=== PATIENT | male | born 1945 | race African-American/Black ===

== ENCOUNTER 2017-11-23 11:15 | Emergency (ER) | payer SELFPAY ==
[~2017-11-23] VITALS: Ht 172.7 cm; Wt 77.1 kg
[~2017-11-23 11:15] MED LIST: UNOBMED
[2017-11-23 11:19] VITALS: BP 124/90
[2017-11-23 12:15] VITALS: BP 124/90
--- NOTE | 2017-11-24 07:39 | Emergency Room Report ---
History of Present Illness General Chief Complaint: Alcohol Intoxication Source: Patient, EMS Present Illness HPI 72-year-old male presents ED for evaluation. Brought in by EMS. Sitting on the sidewalk. Initially did not want to move the sidewalk so 911 was called. Patient in no distress upon arrival. Denies any complaints. States he feels fine. States he wants a sandwich. Admits to some alcohol use. Denies any drug use. Denies chest pain or shortness of breath. Denies abdominal pain. No other aggravating relieving factors. Denies any other associated symptoms Allergies: Coded Allergies: No Known Allergies (Unverified , 11/23/17) Patient History Past Medical History: none Past Surgical History: none Pertinent Family History: none Social History: Reports: alcohol use; Denies: smoking, drug use Immunizations: UTD Reviewed Nursing Documentation: PMH: Agreed; PSxH: Agreed Nursing Documentation-PMH Past Medical History: No Stated History Review of Systems All Other Systems: negative except mentioned in HPI Physical Exam Vital Signs Date Time Temp Pulse Resp B/P (MAP) Pulse Ox O2 Delivery O2 Flow Rate FiO2 11/23/17 11:09 98.6 90 16 120/90 98 Room Air 98.6 Sp02 EP Interpretation: reviewed, normal General Appearance: no apparent distress, alert, GCS 15, non-toxic Head: normocephalic, atraumatic Eyes: bilateral eye normal inspection, bilateral eye PERRL ENT: hearing grossly normal, normal pharynx, no angioedema, normal voice Neck: full range of motion, supple/symm/no masses Respiratory: chest non-tender, lungs clear, normal breath sounds, speaking full sentences Cardiovascular #1: regular rate, rhythm, no edema Cardiovascular #2: 2+ carotid (R), 2+ carotid (L), 2+ radial (R), 2+ radial (L) , 2+ dorsalis pedis (R), 2+ dorsalis pedis (L) Gastrointestinal: normal bowel sounds, non tender, soft, non-distended, no guarding, no rebound Rectal: deferred Genitourinary: normal inspection, no CVA tenderness Musculoskeletal: back normal, gait/station normal, normal range of motion, non- tender Neurologic: alert, oriented x3, responsive, motor strength/tone normal, sensory intact, speech normal Psychiatric: judgement/insight normal, memory normal, mood/affect normal, no suicidal/homicidal ideation Reflexes: 3+ bicep (R), 3+ bicep (L), 3+ tricep (R), 3+ tricep (L), 3+ knee (R) , 3+ knee (L) Skin: normal color, no rash, warm/dry, well hydrated Lymphatic: no adenopathy Medical Decision Making Diagnostic Impression: Primary Impression: Acute alcoholic intoxication Qualified Codes: F10.929 - Alcohol use, unspecified with intoxication, unspecified ER Course Hospital Course 72-year-old male presents to ED status post EtOH intoxication. no complaints on arrival Clinical course Patient placed on stretcher. Given that patient is able to provide an adequate history, I see no need to check blood work or place an IV. my assessment shows no evidence of SI/HI requiring psychiatric evaluation. Patient requests sandwich. States he would like to be discharged. Walking with steady gait. Diagnosis - ETOH intoxication stable and discharged to home. Followup with PMD. Return to ED if symptoms recur or worsen Last Vital Signs Date Time Temp Pulse Resp B/P (MAP) Pulse Ox O2 Delivery O2 Flow Rate FiO2 11/23/17 12:15 98.6 78 15 124/90 98 Room Air 98.6 Status: improved Disposition: HOME, SELF-CARE Condition: Stable Referrals: NOT CHOSEN IPA/,REFERRING (PCP) Patient Instructions: Alcohol Use Disorder Nomi Bach MD Nov 24, 2017 07:39
== END 2017-11-23 12:15 | disposition home or self-care (01) ==
LOC: EDBD 11:15 → EMR 12:05
DX: F10.929 Alcohol use, unspecified with intoxication, unspecified (principal)
CPT/HCPCS: 99284

== ENCOUNTER 2018-05-21 16:47 | Inpatient (IN) | payer SELFPAY ==
[~2018-05-21] VITALS: Ht 170.2 cm; Wt 71.3 kg
[~2018-05-21 16:47] MED LIST changes: +NKM
[2018-05-21 17:00] VITALS: BP 125/84
--- NOTE | 2018-05-21 17:00 | NUR ---
ED Nurse Note: Pt arrived by ambulance from a friend's home; pt is homeless. Ambulance personnel stated the friend claimed that pt fell and acquired the open laceration on left alexander. Ambulance also mentioned that friend says pt is demented and unable to walk due to this recent fall and injury. Pt confused with repetitive speech and frustration due to difficulty comminicationg. Pt anxious and restless. Will continue to monitor and carry out MD's orders.
[2018-05-21] MEDS ORDERED: LORazepam Inj 2mg/ml 1ml IM ONE (17:15)
--- NOTE | 2018-05-21 17:30 | NUR ---
ED Nurse Note: RN confirmed with Dr. Bach to change route of ativan 1mg. ativan given by IVP per dr. Bach.
[2018-05-21 17:33] LABS: HEMATOCRIT 25.3 % (42.0-52.0); MEAN CORPUSCULAR VOLUME 80 FL (80-99); PLATELET COUNT 97 K/UL (150-450); RED BLOOD COUNT 3.14 M/UL (4.70-6.10); RED CELL DISTRIBUTION WIDTH 16.7 % (11.6-14.8); WHITE BLOOD COUNT 11.1 K/UL (4.8-10.8)
[2018-05-21 17:36] LABS: EOSINOPHILS % (AUTO) 0.1 % (0.0-3.0); LYMPHOCYTES % (AUTO) 16.5 % (20.0-45.0); MONOCYTES % (AUTO) 7.2 % (1.0-10.0); NEUTROPHILS % (AUTO) 75.1 % (45.0-75.0)
[2018-05-21 17:46] LABS: INR 1.1 (0.9-1.1)
[2018-05-21 17:56] LABS: ANION GAP 12 mmol/L (5-15); BLOOD UREA NITROGEN 10 mg/dL (7-18); CALCIUM 8.7 MG/DL (8.5-10.1); CARBON DIOXIDE 26 MMOL/L (21-32); CHLORIDE 101 MMOL/L (98-107); CREATININE 0.8 MG/DL (0.55-1.30); POTASSIUM 3.7 MMOL/L (3.5-5.1); SODIUM 138 MMOL/L (136-145)
[2018-05-21 17:57] LABS: AMMONIA < 10 umol/L (11-32)
[2018-05-21 18:06] LABS: ALANINE AMINOTRANSFERASE 32 U/L (12-78); ALBUMIN 3.4 G/DL (3.4-5.0); ALBUMIN/GLOBULIN RATIO 1.1 (1.0-2.7); ALKALINE PHOSPHATASE 84 U/L (46-116); ASPARTATE AMINO TRANSFERASE 31 U/L (15-37); BILIRUBIN,TOTAL 1.2 MG/DL (0.2-1.0)
[2018-05-21 18:07] LABS: BILIRUBIN,DIRECT 0.3 MG/DL (0.0-0.3)
[2018-05-21 19:00] VITALS: BP 113/86
--- NOTE | 2018-05-21 19:10 | NUR ---
ED Nurse Note: Received report from Key/ Lorena/ RN . Pt is A/O X3, Confused, waitng for bed to transfer.
--- NOTE | 2018-05-21 19:13 | Emergency Room Report ---
History of Present Illness General Chief Complaint: Multiple Trauma/Fall Source: Patient, EMS Present Illness HPI 72-year-old male presents ED for evaluation. Patient brought in by EMS. Patient stated that patient kicked something by accident at his friend's house and there was lots of bleeding from his left leg. Friend states there was "blood everywhere". No active bleeding as per EMS. Patient is a poor historian. Unable to provide any additional history at this time. Appears confused. History of EtOH. No signs of distress upon arrival. No other aggravating relieving factors. No other associated symptoms Allergies: Coded Allergies: No Known Allergies (Unverified , 11/23/17) Patient History Past Medical History: none Past Surgical History: none Pertinent Family History: none Social History: Reports: alcohol use; Denies: smoking, drug use Immunizations: UTD Reviewed Nursing Documentation: PMH: Agreed; PSxH: Agreed Nursing Documentation-PMH Past Medical History: No Stated History Review of Systems All Other Systems: limited Physical Exam Vital Signs Date Time Temp Pulse Resp B/P (MAP) Pulse Ox O2 Delivery O2 Flow Rate FiO2 05/21/18 16:39 77 18 140/52 97 Room Air Sp02 EP Interpretation: reviewed, normal General Appearance: no apparent distress, GCS 15, non-toxic, other - confused Head: normocephalic Eyes: bilateral eye normal inspection, bilateral eye PERRL ENT: normal ENT inspection Neck: normal inspection Respiratory: chest non-tender, lungs clear, normal breath sounds, speaking full sentences Cardiovascular #1: regular rate, rhythm, no edema Gastrointestinal: normal bowel sounds, non tender, soft, non-distended, no guarding, no rebound Rectal: deferred Genitourinary: no CVA tenderness Musculoskeletal: normal inspection, swelling - erythema to bilateral lower extremities. punctate bleeding from LLE. Neurologic: other - confused. awake Psychiatric: other - confused Skin: normal inspection Lymphatic: normal inspection Medical Decision Making Diagnostic Impression: Primary Impression: Encephalopathy acute Additional Impression: Anemia Qualified Codes: D64.9 - Anemia, unspecified ER Course Hospital Course 72 yo M presents with bleeding from LLE. also appears confused Differential diagnoses include: Post ictal, Dilantin toxicity, alcohol toxicity , intracranial injury Clinical course She placed on stretcher. On color television console monitor. After initial history and physical ordered labs, IV fluids, CT brain. Labs reviewed-electrolytes okay, leukocytosis, hemoglobin/hematocrit 8/25.3, ammonia level ok, Utox negative CT brain shows no acute pathology, venticulomegaly There is some soft tissue swelling on tib-fib x-ray. No fracture. Bleeding controlled here. Pressure dressing applied. Not a laceration no repair required Type and screen ordered. Blood pressure okay. Serial CBC recommended case discussed with Dr. Sandra and he agreed to accept the patient to his service for further care and support i. I feel this is a highly complex case requiring extensive working including EKG/Rhythm strip, Xray/CT/US, Blood/urine lab work, repeat exams while in ED, and administration of strong opiates/narcotics for pain control, admission to hospital or close patient follow up. Diagnosis - acute encephalopathy, anemia Admitted to floor in serious condition Labs Test 05/21/18 17:21 05/21/18 18:30 White Blood Count 11.1 K/UL (4.8-10.8) Red Blood Count 3.14 M/UL (4.70-6.10) Hemoglobin 8.0 G/DL (14.2-18.0) Hematocrit 25.3 % (42.0-52.0) Mean Corpuscular Volume 80 FL (80-99) Mean Corpuscular Hemoglobin 25.5 PG (27.0-31.0) Mean Corpuscular Hemoglobin Concent 31.7 G/DL (32.0-36.0) Red Cell Distribution Width 16.7 % (11.6-14.8) Platelet Count 97 K/UL (150-450) Mean Platelet Volume 10.7 FL (6.5-10.1) Neutrophils (%) (Auto) 75.1 % (45.0-75.0) Lymphocytes (%) (Auto) 16.5 % (20.0-45.0) Monocytes (%) (Auto) 7.2 % (1.0-10.0) Eosinophils (%) (Auto) 0.1 % (0.0-3.0) Basophils (%) (Auto) 1.0 % (0.0-2.0) Prothrombin Time 11.4 SEC (9.30-11.50) Prothromb Time International Ratio 1.1 (0.9-1.1) Activated Partial Thromboplast Time 26 SEC (23-33) Sodium Level 138 MMOL/L (136-145) Potassium Level 3.7 MMOL/L (3.5-5.1) Chloride Level 101 MMOL/L (98-107) Carbon Dioxide Level 26 MMOL/L (21-32) Anion Gap 12 mmol/L (5-15) Blood Urea Nitrogen 10 mg/dL (7-18) Creatinine 0.8 MG/DL (0.55-1.30) Estimat Glomerular Filtration Rate mL/min (>60) Glucose Level 131 MG/DL (74-106) Calcium Level 8.7 MG/DL (8.5-10.1) Total Bilirubin 1.2 MG/DL (0.2-1.0) Direct Bilirubin 0.3 MG/DL (0.0-0.3) Aspartate Amino Transf (AST/SGOT) 31 U/L (15-37) Alanine Aminotransferase (ALT/SGPT) 32 U/L (12-78) Alkaline Phosphatase 84 U/L (46-116) Ammonia < 10 umol/L (11-32) Total Protein 6.6 G/DL (6.4-8.2) Albumin 3.4 G/DL (3.4-5.0) Globulin 3.2 g/dL Albumin/Globulin Ratio 1.1 (1.0-2.7) Salicylates Level < 0.2 ug/mL (2.8-20) Acetaminophen Level < 2 MCG/ML (10-30) Serum Alcohol < 3 mg/dL Urine Opiates Screen Negative (NEGATIVE) Urine Barbiturates Screen Negative (NEGATIVE) Phencyclidine (PCP) Screen Negative (NEGATIVE) Urine Amphetamines Screen Negative (NEGATIVE) Urine Benzodiazepines Screen Negative (NEGATIVE) Urine Cocaine Screen Negative (NEGATIVE) Urine Marijuana (THC) Screen Negative (NEGATIVE) Other X-Ray Diagnostic Results Other X-Ray Diagnostic Results : X-Ray ordered: L tibfib # of Views/Limited Vs Complete: 2 View Indication: Pain EP Interpretation: Yes Interpretation: no dislocation, no fractures Impression: No acute disease Electronically Signed by: Electronically signed by Nomi Bach MD CT/MRI/US Diagnostic Results CT/MRI/US Diagnostic Results : Imaging Test Ordered: CT Head Impression ventriculomegaly. no acute process Last Vital Signs Date Time Temp Pulse Resp B/P (MAP) Pulse Ox O2 Delivery O2 Flow Rate FiO2 05/21/18 16:39 77 18 140/52 97 Room Air Status: improved Disposition: ADMITTED INPATIENT Condition: Serious Referrals: NOT CHOSEN IPA/,REFERRING (PCP) Nomi Bach MD May 21, 2018 19:13
--- NOTE | 2018-05-21 21:00 | NUR ---
ED Nurse Note: Pt's family called, ED Alberto / [phone].
--- NOTE | 2018-05-21 21:20 | NUR ---
TRANSFER TO FLOOR: Patient transferred to [facility] as ordered . Report given to Maylin/MIKE. Belongings rechecked with RN.
[2018-05-21] MEDS ORDERED: LORazepam Inj 2mg/ml 1ml IV PRN (22:15)
[2018-05-21] MEDS ORDERED: Morphine Sulfate 4mg/ml Inj (IV/IM USE ONLY) IVP PRN (22:15)
--- NOTE | 2018-05-21 22:41 | Infectious Diseases Prog Note ---
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 (3) Acute alcoholic intoxication Assessment & Plan: continue supportive care , watch for DT (4) Encephalopathy acute Assessment & Plan: metabolic related, continue hydration Subjective Allergies: Coded Allergies: No Known Allergies (Unverified , 11/23/17) Objective Vital Signs Last 24 Hour Vital Signs Date Time Temp Pulse Resp B/P (MAP) Pulse Ox O2 Delivery O2 Flow Rate FiO2 05/21/18 19:00 97.6 87 18 113/86 99 Room Air 05/21/18 17:00 97.6 98 19 125/84 99 Room Air 05/21/18 17:00 98 19 Room Air 05/21/18 16:39 77 18 140/52 97 Room Air Height (Feet): 5 Height (Inches): 7.00 Weight (Pounds): 155 Laboratory Tests Test 05/21/18 17:21 05/21/18 18:30 White Blood Count 11.1 K/UL (4.8-10.8) H Red Blood Count 3.14 M/UL (4.70-6.10) L Hemoglobin 8.0 G/DL (14.2-18.0) L Hematocrit 25.3 % (42.0-52.0) L Mean Corpuscular Volume 80 FL (80-99) Mean Corpuscular Hemoglobin 25.5 PG (27.0-31.0) L Mean Corpuscular Hemoglobin Concent 31.7 G/DL (32.0-36.0) L Red Cell Distribution Width 16.7 % (11.6-14.8) H Platelet Count 97 K/UL (150-450) L Mean Platelet Volume 10.7 FL (6.5-10.1) H Neutrophils (%) (Auto) 75.1 % (45.0-75.0) H Lymphocytes (%) (Auto) 16.5 % (20.0-45.0) L Monocytes (%) (Auto) 7.2 % (1.0-10.0) Eosinophils (%) (Auto) 0.1 % (0.0-3.0) Basophils (%) (Auto) 1.0 % (0.0-2.0) Prothrombin Time 11.4 SEC (9.30-11.50) Prothromb Time International Ratio 1.1 (0.9-1.1) Activated Partial Thromboplast Time 26 SEC (23-33) Sodium Level 138 MMOL/L (136-145) Potassium Level 3.7 MMOL/L (3.5-5.1) Chloride Level 101 MMOL/L (98-107) Carbon Dioxide Level 26 MMOL/L (21-32) Anion Gap 12 mmol/L (5-15) Blood Urea Nitrogen 10 mg/dL (7-18) Creatinine 0.8 MG/DL (0.55-1.30) Estimat Glomerular Filtration Rate mL/min (>60) Glucose Level 131 MG/DL (74-106) H Calcium Level 8.7 MG/DL (8.5-10.1) Total Bilirubin 1.2 MG/DL (0.2-1.0) H Direct Bilirubin 0.3 MG/DL (0.0-0.3) Aspartate Amino Transf (AST/SGOT) 31 U/L (15-37) Alanine Aminotransferase (ALT/SGPT) 32 U/L (12-78) Alkaline Phosphatase 84 U/L (46-116) Ammonia < 10 umol/L (11-32) L Total Protein 6.6 G/DL (6.4-8.2) Albumin 3.4 G/DL (3.4-5.0) Globulin 3.2 g/dL Albumin/Globulin Ratio 1.1 (1.0-2.7) Salicylates Level < 0.2 ug/mL (2.8-20) L Acetaminophen Level < 2 MCG/ML (10-30) L Serum Alcohol < 3 mg/dL Urine Opiates Screen Negative (NEGATIVE) Urine Barbiturates Screen Negative (NEGATIVE) Phencyclidine (PCP) Screen Negative (NEGATIVE) Urine Amphetamines Screen Negative (NEGATIVE) Urine Benzodiazepines Screen Negative (NEGATIVE) Urine Cocaine Screen Negative (NEGATIVE) Urine Marijuana (THC) Screen Negative (NEGATIVE) Current Medications Medications (Trade) Dose Ordered Sig/Jenna Route PRN Reason Start Time Stop Time Status Last Admin Dose Admin Acetaminophen (Tylenol) 650 mg Q4H PRN ORAL Mild Pain/Temp > 100.5 05/21/18 22:15 06/20/18 22:14 UNV Clindamycin HCl/ Dextrose 50 ml @ 100 mls/hr Q8HR IVPB 05/22/18 06:00 05/29/18 05:59 UNV Lorazepam (Ativan 2mg/ml 1ml) 1 mg Q6HR PRN IV For Anxiety 05/21/18 22:15 05/28/18 22:14 UNV Morphine Sulfate (Morphine Sulfate) 2 mg Q4H PRN IVP Severe Pain (Pain Scale 7-10) 05/21/18 22:15 05/28/18 22:14 UNV Pantoprazole (Protonix) 40 mg DAILY ORAL 05/22/18 09:00 06/21/18 08:59 UNV Bret Lassiter M.D. May 21, 2018 22:41
[2018-05-22] VITALS: BP 103/51
--- NOTE | 2018-05-22 00:12 | NUR ---
NURSE NOTES: Admitted a 72 year old male, oriented to his name, forgetful, confused and no complaints of pain at this time. Swabs done per Kirsten FRUIT TRIMMER. With g.20 on right AC. Scabs on the right arm. Active bleeding on the left lower extremity upon change of dressing. Photo taken and uploaded. Swab done on affected area. Dressing changed. Spoke to Dr. Sandra and admission orders obtained and carried out. Instructed the use of call light. Call light and needs in reach. Bed in lowest position, lock engaged and alarm on. Will continue to monitor pt. Spoke to Ed Alberto contact # [phone], he said, pt is his room mate and been helping him for years and he wants to be contacted once the patient is ready for discharge so he can pick him up. He gave me pt's [id number] # Patrizia [phone]. She said, she is in [place] with the pt's son Art Bejarano. Spoke to pt's son and obtained consent for blood transfusion witnessed by Charge nurse, Rell Babcock.
[2018-05-22] MEDS ORDERED: LORazepam Inj 2mg/ml 1ml IV PRN ×2 (00:15→11:30)
--- NOTE | 2018-05-22 00:15 | NUR ---
NURSE NOTES: Patient has been agitated and looking for his stuff repetitive times. Staff has been re orientating pt several times. Patient attempted to get out of bed few times.
[2018-05-22 04:00] VITALS: BP 110/59
--- NOTE | 2018-05-22 07:31 | NUR ---
HAND-OFF: Report given to MIKE Kovacs.
--- NOTE | 2018-05-22 07:35 | NUR ---
NURSE NOTES: Received patient in bed,asleep, breathing is even and unlabored. Infusing blood @ this time. Bed is in lowest position and locked.Bed alarm is on and side rails up. Call light and personnel items within reach. Left lower ex's with dressing and IV intact. Will continue plan of care.
[2018-05-22 08:00] VITALS: BP 141/63
--- NOTE | 2018-05-22 09:50 | NUR ---
NURSE NOTES: Patient completed blood transfusion without s/s of adverse reaction. V/S T-97.7, P-72, R-18, BP- 111/58. RN returned the empty PRBC bag and papaer to K. Original paper in the chart.
--- NOTE | 2018-05-22 11:16 | NUR ---
CASE MANAGEMENT:REVIEW FROM FRIEND'S HOUSE.... CC; GROUND LEVEL FALL AT FRIENDS HOUSE. LLE LACERATION. ALTERED SI: ACUTE ENCEPHALOPATHY. ANEMIA 97.6 77 18 140/52 97% ON RA H/H-8.0/25.5 IS: ATIVAN IM 1L NS BOLUS IV CLINDAMYCIN CT HEAD CXR TYPR & SCREEN : TO MED/SURG UNIT 4 EAST IS: TRANSFUSE 2 UNITS PRBC'S INTERQUAL CRITERIA MET
--- NOTE | 2018-05-22 11:18 | History & Physical ---
History and Physical History & Physicial seen and examined. Full Dictation is completed Dorina Sandra MD May 22, 2018 11:18
[2018-05-22] MEDS ORDERED: chlordiazePOXIDE 25mg Cap ORAL PRN (11:30)
[2018-05-22 12:00] VITALS: BP 117/56
[2018-05-22 13:21] LABS: HEMATOCRIT 27.7 % (42.0-52.0); HEMOGLOBIN 9.2 G/DL (14.2-18.0); MEAN CORPUSCULAR VOLUME 81 FL (80-99); PLATELET COUNT 79 K/UL (150-450); RED BLOOD COUNT 3.41 M/UL (4.70-6.10); RED CELL DISTRIBUTION WIDTH 15.9 % (11.6-14.8); WHITE BLOOD COUNT 7.4 K/UL (4.8-10.8)
[2018-05-22 14:02] LABS: ALANINE AMINOTRANSFERASE 30 U/L (12-78); ALBUMIN 3.2 G/DL (3.4-5.0); ALKALINE PHOSPHATASE 80 U/L (46-116); ANION GAP 9 mmol/L (5-15); ASPARTATE AMINO TRANSFERASE 37 U/L (15-37); BLOOD UREA NITROGEN 11 mg/dL (7-18); CALCIUM 8.6 MG/DL (8.5-10.1); CARBON DIOXIDE 27 MMOL/L (21-32); CHLORIDE 107 MMOL/L (98-107); CHOLESTEROL 128 MG/DL (< 200); CREATININE 0.8 MG/DL (0.55-1.30); HDL CHOLESTEROL 37 MG/DL (40-60); POTASSIUM 3.7 MMOL/L (3.5-5.1); SODIUM 143 MMOL/L (136-145); TRIGLYCERIDES 100 MG/DL (30-150)
--- NOTE | 2018-05-22 14:55 | Infectious Diseases Prog Note ---
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 with executive producer (3) Acute alcoholic intoxication Assessment & Plan: continue supportive care , watch for DT (4) Encephalopathy acute Assessment & Plan: metabolic related, continue hydration Subjective Constitutional: Reports: no symptoms HEENT: Reports: no symptoms Respiratory: Reports: no symptoms Breasts: Reports: no symptoms Cardiovascular: Reports: no symptoms Gastrointestinal/Abdominal: Reports: no symptoms Genitourinary: Reports: no symptoms Neurologic: Reports: confusion Psychiatric: Reports: anxiety Skin: Reports: no symptoms Endocrine: Reports: no symptoms Hematologic: Reports: no symptoms Musculoskeletal: Reports: pain Allergies: Coded Allergies: No Known Allergies (Unverified , 11/23/17) Objective Vital Signs Last 24 Hour Vital Signs Date Time Temp Pulse Resp B/P (MAP) Pulse Ox O2 Delivery O2 Flow Rate FiO2 05/22/18 12:00 98.2 68 20 117/56 (76) 97 05/22/18 09:00 Room Air 05/22/18 08:00 98.3 66 20 141/63 (89) 98 05/22/18 04:00 98.5 59 19 110/59 (76) 98 05/22/18 02:19 Room Air 05/22/18 00:00 98.0 57 19 103/51 (68) 95 05/21/18 21:20 97.6 91 18 121/78 99 Room Air 05/21/18 19:00 97.6 87 18 113/86 99 Room Air 05/21/18 17:00 97.6 98 19 125/84 99 Room Air 05/21/18 17:00 98 19 Room Air 05/21/18 16:39 77 18 140/52 97 Room Air Height (Feet): 5 Height (Inches): 7.00 Weight (Pounds): 155 General Appearance: WD/WN, no acute distress, cachetic HEENT: normocephalic, atraumatic, anicteric, mucous membranes moist, PERRL Respiratory/Chest: chest wall non-tender, lungs clear, normal breath sounds, no respiratory distress, no accessory muscle use Cardiovascular: normal peripheral pulses, normal rate, regular rhythm, no gallop/murmur, no JVD Abdomen: normal bowel sounds, soft, non tender, no organomegaly, non distended , no mass, no scars Extremities: no cyanosis, no clubbing Skin: no rash, no lesions, ulcers Neurologic/Psychiatric: alert, responsive, other - confused Lymphatic: no neck adenopathy, no groin adenopathy Musculoskeletal: normal muscle bulk, no effusion Microbiology Date/Time Source Procedure Growth Status 05/21/18 21:35 Wound Gram Stain - Final Resulted 05/21/18 21:35 Wound Wound Culture Pending Resulted Laboratory Tests Test 05/21/18 17:21 05/21/18 18:30 05/22/18 12:40 White Blood Count 11.1 K/UL (4.8-10.8) H 7.4 K/UL (4.8-10.8) Red Blood Count 3.14 M/UL (4.70-6.10) L 3.41 M/UL (4.70-6.10) L Hemoglobin 8.0 G/DL (14.2-18.0) L 9.2 G/DL (14.2-18.0) L Hematocrit 25.3 % (42.0-52.0) L 27.7 % (42.0-52.0) L Mean Corpuscular Volume 80 FL (80-99) 81 FL (80-99) Mean Corpuscular Hemoglobin 25.5 PG (27.0-31.0) L 26.9 PG (27.0-31.0) L Mean Corpuscular Hemoglobin Concent 31.7 G/DL (32.0-36.0) L 33.1 G/DL (32.0-36.0) Red Cell Distribution Width 16.7 % (11.6-14.8) H 15.9 % (11.6-14.8) H Platelet Count 97 K/UL (150-450) L 79 K/UL (150-450) L Mean Platelet Volume 10.7 FL (6.5-10.1) H 10.3 FL (6.5-10.1) H Neutrophils (%) (Auto) 75.1 % (45.0-75.0) H % (45.0-75.0) Lymphocytes (%) (Auto) 16.5 % (20.0-45.0) L % (20.0-45.0) Monocytes (%) (Auto) 7.2 % (1.0-10.0) % (1.0-10.0) Eosinophils (%) (Auto) 0.1 % (0.0-3.0) % (0.0-3.0) Basophils (%) (Auto) 1.0 % (0.0-2.0) % (0.0-2.0) Prothrombin Time 11.4 SEC (9.30-11.50) Prothromb Time International Ratio 1.1 (0.9-1.1) Activated Partial Thromboplast Time 26 SEC (23-33) Sodium Level 138 MMOL/L (136-145) 143 MMOL/L (136-145) Potassium Level 3.7 MMOL/L (3.5-5.1) 3.7 MMOL/L (3.5-5.1) Chloride Level 101 MMOL/L (98-107) 107 MMOL/L (98-107) Carbon Dioxide Level 26 MMOL/L (21-32) 27 MMOL/L (21-32) Anion Gap 12 mmol/L (5-15) 9 mmol/L (5-15) Blood Urea Nitrogen 10 mg/dL (7-18) 11 mg/dL (7-18) Creatinine 0.8 MG/DL (0.55-1.30) 0.8 MG/DL (0.55-1.30) Estimat Glomerular Filtration Rate mL/min (>60) mL/min (>60) Glucose Level 131 MG/DL (74-106) H 120 MG/DL (74-106) H Calcium Level 8.7 MG/DL (8.5-10.1) 8.6 MG/DL (8.5-10.1) Total Bilirubin 1.2 MG/DL (0.2-1.0) H 1.0 MG/DL (0.2-1.0) Direct Bilirubin 0.3 MG/DL (0.0-0.3) Aspartate Amino Transf (AST/SGOT) 31 U/L (15-37) 37 U/L (15-37) Alanine Aminotransferase (ALT/SGPT) 32 U/L (12-78) 30 U/L (12-78) Alkaline Phosphatase 84 U/L (46-116) 80 U/L (46-116) Ammonia < 10 umol/L (11-32) L Total Protein 6.6 G/DL (6.4-8.2) 6.3 G/DL (6.4-8.2) L Albumin 3.4 G/DL (3.4-5.0) 3.2 G/DL (3.4-5.0) L Globulin 3.2 g/dL 3.1 g/dL Albumin/Globulin Ratio 1.1 (1.0-2.7) 1.0 (1.0-2.7) Salicylates Level < 0.2 ug/mL (2.8-20) L Acetaminophen Level < 2 MCG/ML (10-30) L Serum Alcohol < 3 mg/dL Urine Opiates Screen Negative (NEGATIVE) Urine Barbiturates Screen Negative (NEGATIVE) Phencyclidine (PCP) Screen Negative (NEGATIVE) Urine Amphetamines Screen Negative (NEGATIVE) Urine Benzodiazepines Screen Negative (NEGATIVE) Urine Cocaine Screen Negative (NEGATIVE) Urine Marijuana (THC) Screen Negative (NEGATIVE) Differential Total Cells Counted 100 Neutrophils % (Manual) 60 % (45-75) Lymphocytes % (Manual) 28 % (20-45) Monocytes % (Manual) 12 % (1-10) H Eosinophils % (Manual) 0 % (0-3) Basophils % (Manual) 0 % (0-2) Band Neutrophils 0 % (0-8) Platelet Estimate Decreased L Platelet Morphology Normal Hypochromasia 2+ Anisocytosis 1+ Spherocytes 1+ Triglycerides Level 100 MG/DL (30-150) Cholesterol Level 128 MG/DL (< 200) LDL Cholesterol 89 mg/dL (<100) HDL Cholesterol 37 MG/DL (40-60) L Cholesterol/HDL Ratio 3.5 (3.3-4.4) Current Medications Medications (Trade) Dose Ordered Sig/Jenna Route PRN Reason Start Time Stop Time Status Last Admin Dose Admin Acetaminophen (Tylenol) 650 mg Q4H PRN ORAL Mild Pain/Temp > 100.5 05/21/18 22:15 06/20/18 22:14 Chlordiazepoxide (Librium) 25 mg Q6H PRN ORAL Agitation 05/22/18 11:30 05/29/18 11:29 Clindamycin HCl/ Dextrose 50 ml @ 100 mls/hr Q8H IV 05/22/18 03:00 05/29/18 02:59 05/22/18 11:37 Lorazepam (Ativan 2mg/ml 1ml) 1 mg Q6H PRN IV Agitation 05/22/18 11:30 05/29/18 00:14 Morphine Sulfate (Morphine Sulfate) 2 mg Q4H PRN IVP Severe Pain (Pain Scale 7-10) 05/21/18 22:15 05/28/18 22:14 Pantoprazole (Protonix) 40 mg DAILY ORAL 05/22/18 09:00 06/21/18 08:59 05/22/18 08:56 Quetiapine Fumarate (SEROquel) 25 mg Q6H PRN ORAL For Anxiety 05/21/18 23:00 06/20/18 22:59 Bret Lassiter M.D. May 22, 2018 14:55
--- NOTE | 2018-05-22 15:50 | Diagnostic Imaging Report ---
EXAM: CT Head Without Intravenous Contrast CLINICAL HISTORY: AMS TECHNIQUE: Axial computed tomography images of the head/brain without intravenous contrast. CTDI is 53 mGy and DLP is 766 mGy-cm. One or more of the following dose reduction techniques were used: automated exposure control, adjustment of the mA and/or kV according to patient size, use of iterative reconstruction technique. COMPARISON: No relevant prior studies available. FINDINGS: Brain: No acute intracranial hemorrhage or cortical ischemia. Chronic small vessel ischemic changes. Ventricles: Mild ventriculomegaly, cannot exclude normal pressure hydrocephalus. Bones/joints: Unremarkable. No acute fracture. Soft tissues: Unremarkable. Sinuses: Unremarkable as visualized. Mastoid air cells: Unremarkable as visualized. IMPRESSION: 1. No acute intracranial hemorrhage or cortical ischemia. Chronic small vessel ischemic changes. 2. Mild ventriculomegaly, cannot exclude normal pressure hydrocephalus.
--- NOTE | 2018-05-22 15:50 | Diagnostic Imaging Report ---
EXAM: XR Left Tibia and Fibula, 2 Views CLINICAL HISTORY: PAIN TECHNIQUE: Frontal and lateral views of the left tibia and fibula. COMPARISON: No relevant prior studies available. FINDINGS: Bones/joints: No acute displaced fracture or dislocation. Distal fibular chronic fracture. Soft tissues: Soft tissue swelling. No radiopaque foreign body. IMPRESSION: No acute displaced fracture or dislocation.
[2018-05-22 15:53] VITALS: BP 120/63
--- NOTE | 2018-05-22 17:00 | NUR ---
NURSE NOTES: Patient is more alert and able to tolerate with his food and use urinal.
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
--- NOTE | 2018-05-22 19:35 | NUR ---
HAND-OFF: Report given to Kay.
[2018-05-22 20:00] VITALS: BP 110/48
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
--- NOTE | 2018-05-22 20:02 | NUR ---
NURSE NOTES: Pt received awake, talkative, with bed in lowest position and no signs of pain or distress, call light within reach.
[2018-05-22] MEDS ORDERED: Tubing Blood Filter IV ONE (22:42)
[2018-05-22] MEDS ORDERED: NS 275ml ONE (22:42)
[2018-05-22] MEDS ORDERED: NS 500ML ONE (22:42)
[2018-05-23] VITALS: BP 124/56
[2018-05-23 04:00] VITALS: BP 133/62
[2018-05-23 07:25] LABS: HEMATOCRIT 26.8 % (42.0-52.0); HEMOGLOBIN 8.7 G/DL (14.2-18.0); MEAN CORPUSCULAR VOLUME 81 FL (80-99); PLATELET COUNT 71 K/UL (150-450); RED BLOOD COUNT 3.29 M/UL (4.70-6.10); RED CELL DISTRIBUTION WIDTH 16.3 % (11.6-14.8); WHITE BLOOD COUNT 7.2 K/UL (4.8-10.8)
--- NOTE | 2018-05-23 07:41 | NUR ---
NURSE NOTES: Report given to MIKE Torres.
[2018-05-23 07:43] LABS: ALANINE AMINOTRANSFERASE 28 U/L (12-78); ALBUMIN 2.9 G/DL (3.4-5.0); ALBUMIN/GLOBULIN RATIO 0.9 (1.0-2.7); ALKALINE PHOSPHATASE 71 U/L (46-116); ANION GAP 8 mmol/L (5-15); ASPARTATE AMINO TRANSFERASE 32 U/L (15-37); BILIRUBIN,TOTAL 0.8 MG/DL (0.2-1.0); BLOOD UREA NITROGEN 11 mg/dL (7-18); CALCIUM 8.4 MG/DL (8.5-10.1); CARBON DIOXIDE 28 MMOL/L (21-32); CHLORIDE 107 MMOL/L (98-107); CREATININE 0.9 MG/DL (0.55-1.30); POTASSIUM 3.5 MMOL/L (3.5-5.1); SODIUM 143 MMOL/L (136-145)
[2018-05-23 08:00] VITALS: BP 120/51
--- NOTE | 2018-05-23 08:00 | NUR ---
NURSE NOTES: received patient in bed, awake, no complaint of pain or discomfort. Patient has a right hand IV access, no IVF. Left sheen wound with bandage, dry and intact. Call light within easy reach, siderails up x2, bed locked at lowest position possible. Will continue to monitor patient and follow up wityh the plan of care.
--- NOTE | 2018-05-23 09:00 | NUR ---
NURSE NOTES: patient was trying to ambulate to bathroom and didn't notice he had IV connected, receing only TKO. IV access was pulled out inadvertently. Patient with periods of confusion, couldn't ascertain the year, but knew today's day and month, and reason he's in the hospital. Resited IV to left wrist gauge 22. Provided bedside commode, educated patient to call the nurse if he needs to use bedside commode, and to use urinal.
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
[2018-05-23 12:00] VITALS: BP 122/54
--- NOTE | 2018-05-23 14:13 | NUR ---
NURSE NOTES: patient received visit from friend/roomate Ed Arjun , who provided patient's son phone # . Notified BENJI Galaviz.
--- NOTE | 2018-05-23 14:40 | NUR ---
CONTACT INFORMATION patient received visit from friend/roomate Miguel Díaz , who provided patient's son phone # .
--- NOTE | 2018-05-23 14:49 | NUR ---
CASE MANAGEMENT:REVIEW 05/23/18 SI: ACUTE ENCEPHALOPATHY. ANEMIA 97.6 61 18 122/54 97% ON RA H/H-8.7/26.8 PLT-71 IS: IV CLINDAMYCIN Q8HRS LAMISIL PO QD PROTONIX PO QD : MED/SURG STATUS 4 [facility]
[2018-05-23 16:00] VITALS: BP 114/58
--- NOTE | 2018-05-23 16:43 | Infectious Diseases Prog Note ---
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 with web content specialist (3) Acute alcoholic intoxication Assessment & Plan: continue supportive care , watch for DT (4) Encephalopathy acute Assessment & Plan: metabolic related, continue hydration Subjective Constitutional: Reports: no symptoms HEENT: Reports: no symptoms Respiratory: Reports: no symptoms Breasts: Reports: no symptoms Cardiovascular: Reports: no symptoms Gastrointestinal/Abdominal: Reports: no symptoms Genitourinary: Reports: no symptoms Neurologic: Reports: no symptoms Psychiatric: Reports: no symptoms Skin: Reports: no symptoms Endocrine: Reports: no symptoms Hematologic: Reports: no symptoms Musculoskeletal: Reports: no symptoms Allergies: Coded Allergies: No Known Allergies (Unverified , 11/23/17) Objective Vital Signs Last 24 Hour Vital Signs Date Time Temp Pulse Resp B/P (MAP) Pulse Ox O2 Delivery O2 Flow Rate FiO2 05/23/18 16:00 99.0 60 19 114/58 (76) 100 05/23/18 12:00 97.6 61 18 122/54 (76) 97 05/23/18 09:00 Room Air 05/23/18 08:00 97.2 59 18 120/51 (74) 98 05/23/18 04:00 97.7 59 17 133/62 (85) 97 05/23/18 00:00 98.5 59 17 124/56 (78) 95 05/22/18 21:00 Room Air 05/22/18 20:00 98.2 67 16 110/48 (68) 97 Height (Feet): 5 Height (Inches): 7.00 Weight (Pounds): 155 General Appearance: WD/WN, no acute distress HEENT: normocephalic, atraumatic, anicteric, mucous membranes moist, PERRL Respiratory/Chest: chest wall non-tender, lungs clear, normal breath sounds, no respiratory distress, no accessory muscle use Cardiovascular: normal peripheral pulses, normal rate, regular rhythm, no gallop/murmur, no JVD Abdomen: normal bowel sounds, soft, non tender, no organomegaly, non distended , no mass, no scars Genitourinary: normal external genitalia Extremities: no cyanosis, no clubbing Skin: no rash, no lesions Microbiology Date/Time Source Procedure Growth Status 05/21/18 21:35 Wound Gram Stain - Final Resulted 05/21/18 21:35 Wound Wound Culture - Preliminary NO GROWTH AFTER 24 HOURS Resulted Laboratory Tests Test 05/23/18 06:00 White Blood Count 7.2 K/UL (4.8-10.8) Red Blood Count 3.29 M/UL (4.70-6.10) L Hemoglobin 8.7 G/DL (14.2-18.0) L Hematocrit 26.8 % (42.0-52.0) L Mean Corpuscular Volume 81 FL (80-99) Mean Corpuscular Hemoglobin 26.3 PG (27.0-31.0) L Mean Corpuscular Hemoglobin Concent 32.4 G/DL (32.0-36.0) Red Cell Distribution Width 16.3 % (11.6-14.8) H Platelet Count 71 K/UL (150-450) L Mean Platelet Volume 11.0 FL (6.5-10.1) H Neutrophils (%) (Auto) % (45.0-75.0) Lymphocytes (%) (Auto) % (20.0-45.0) Monocytes (%) (Auto) % (1.0-10.0) Eosinophils (%) (Auto) % (0.0-3.0) Basophils (%) (Auto) % (0.0-2.0) Differential Total Cells Counted 100 Neutrophils % (Manual) 57 % (45-75) Lymphocytes % (Manual) 30 % (20-45) Monocytes % (Manual) 13 % (1-10) H Eosinophils % (Manual) 0 % (0-3) Basophils % (Manual) 0 % (0-2) Band Neutrophils 0 % (0-8) Platelet Estimate Decreased L Platelet Morphology Normal Hypochromasia 1+ Anisocytosis 1+ Sodium Level 143 MMOL/L (136-145) Potassium Level 3.5 MMOL/L (3.5-5.1) Chloride Level 107 MMOL/L (98-107) Carbon Dioxide Level 28 MMOL/L (21-32) Anion Gap 8 mmol/L (5-15) Blood Urea Nitrogen 11 mg/dL (7-18) Creatinine 0.9 MG/DL (0.55-1.30) Estimat Glomerular Filtration Rate mL/min (>60) Glucose Level 111 MG/DL (74-106) H Calcium Level 8.4 MG/DL (8.5-10.1) L Total Bilirubin 0.8 MG/DL (0.2-1.0) Aspartate Amino Transf (AST/SGOT) 32 U/L (15-37) Alanine Aminotransferase (ALT/SGPT) 28 U/L (12-78) Alkaline Phosphatase 71 U/L (46-116) Total Protein 6.0 G/DL (6.4-8.2) L Albumin 2.9 G/DL (3.4-5.0) L Globulin 3.1 g/dL Albumin/Globulin Ratio 0.9 (1.0-2.7) L Current Medications Medications (Trade) Dose Ordered Sig/Jenna Route PRN Reason Start Time Stop Time Status Last Admin Dose Admin Acetaminophen (Tylenol) 650 mg Q4H PRN ORAL Mild Pain/Temp > 100.5 05/21/18 22:15 06/20/18 22:14 Chlordiazepoxide (Librium) 25 mg Q6H PRN ORAL Agitation 05/22/18 11:30 05/29/18 11:29 Clindamycin HCl/ Dextrose 50 ml @ 100 mls/hr Q8H IV 05/22/18 03:00 05/29/18 02:59 05/23/18 11:38 Lorazepam (Ativan 2mg/ml 1ml) 1 mg Q6H PRN IV Agitation 05/22/18 11:30 05/29/18 00:14 Morphine Sulfate (Morphine Sulfate) 2 mg Q4H PRN IVP Severe Pain (Pain Scale 7-10) 05/21/18 22:15 05/28/18 22:14 Pantoprazole (Protonix) 40 mg DAILY ORAL 05/22/18 09:00 06/21/18 08:59 05/23/18 09:08 Quetiapine Fumarate (SEROquel) 25 mg Q6H PRN ORAL For Anxiety 05/21/18 23:00 06/20/18 22:59 Terbinafine HCl (LamISIL) 250 mg DAILY ORAL 05/23/18 09:00 05/30/18 08:59 05/23/18 09:08 Bret Lassiter M.D. May 23, 2018 16:43
--- NOTE | 2018-05-23 19:58 | NUR ---
NURSE NOTES: Pt awake sitting in a chair at bedside, call light within reach, no signs of pain or distress at the moment.
[2018-05-23 20:00] VITALS: BP 116/58
[2018-05-24] VITALS: BP 112/61
[2018-05-24 04:00] VITALS: BP 122/65
[2018-05-24 07:40] LABS: HEMATOCRIT 26.6 % (42.0-52.0); HEMOGLOBIN 8.5 G/DL (14.2-18.0); MEAN CORPUSCULAR VOLUME 83 FL (80-99); PLATELET COUNT 77 K/UL (150-450); RED BLOOD COUNT 3.22 M/UL (4.70-6.10); RED CELL DISTRIBUTION WIDTH 16.6 % (11.6-14.8); WHITE BLOOD COUNT 6.7 K/UL (4.8-10.8)
--- NOTE | 2018-05-24 07:48 | NUR ---
HAND-OFF: Report given to MIKE Torres.
[2018-05-24 07:55] LABS: ALANINE AMINOTRANSFERASE 27 U/L (12-78); ALBUMIN 3.1 G/DL (3.4-5.0); ALKALINE PHOSPHATASE 75 U/L (46-116); ANION GAP 6 mmol/L (5-15); ASPARTATE AMINO TRANSFERASE 30 U/L (15-37); BILIRUBIN,TOTAL 0.7 MG/DL (0.2-1.0); BLOOD UREA NITROGEN 12 mg/dL (7-18); CALCIUM 8.4 MG/DL (8.5-10.1); CARBON DIOXIDE 29 MMOL/L (21-32); CHLORIDE 106 MMOL/L (98-107); CREATININE 0.8 MG/DL (0.55-1.30); POTASSIUM 3.8 MMOL/L (3.5-5.1); SODIUM 141 MMOL/L (136-145)
[2018-05-24 08:00] VITALS: BP 103/64
[2018-05-24 12:00] VITALS: BP 110/55
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
--- NOTE | 2018-05-24 12:08 | General Progress Note ---
Assessment/Plan Problem List: (1) Encephalopathy acute ICD Codes: G93.40 - Encephalopathy, unspecified SNOMED: 06297267, 662922483 (2) Alcohol abuse ICD Codes: F10.10 - Alcohol abuse, uncomplicated SNOMED: 71375732 Assessment/Plan risperdal 1mg po qhs the pt may be discharged after medical clearance the pt is not at imminent dts/dto Subjective Date patient seen: May 24, 2018 Neurologic/Psychiatric: Reports: anxiety Allergies: Coded Allergies: No Known Allergies (Unverified , 11/23/17) Subjective the pt is guanako alert and is able to answer the question more appropriately the pt is still scattered. he denied any alcohol use and other drugs. Objective Last 24 Hour Vital Signs Date Time Temp Pulse Resp B/P (MAP) Pulse Ox O2 Delivery O2 Flow Rate FiO2 05/24/18 09:00 Room Air 05/24/18 08:00 97.2 65 18 103/64 (77) 96 05/24/18 04:00 98.2 61 18 122/65 (84) 97 05/24/18 00:00 98.0 18 112/61 (78) 100 05/23/18 21:00 Room Air 05/23/18 20:00 98.3 60 18 116/58 (77) 100 05/23/18 16:00 99.0 60 19 114/58 (76) 100 Intake and Output 05/23/18 05/24/18 19:00 07:00 Intake Total 1420 ml 150 ml Output Total 950 ml Balance 1420 ml -800 ml Intake Oral 1420 ml 150 ml Output Urine Total 950 ml # Voids 8 Laboratory Tests 05/24/18 07:00: White Blood Count 6.7, Red Blood Count 3.22L, Hemoglobin 8.5L, Hematocrit 26.6L , Mean Corpuscular Volume 83, Mean Corpuscular Hemoglobin 26.5L, Mean Corpuscular Hemoglobin Concent 32.1, Red Cell Distribution Width 16.6H, Platelet Count 77L, Mean Platelet Volume 12.5H, Neutrophils (%) (Auto) , Lymphocytes (%) (Auto) , Monocytes (%) (Auto) , Eosinophils (%) (Auto) , Basophils (%) (Auto) , Differential Total Cells Counted 100, Neutrophils % ( Manual) 62, Lymphocytes % (Manual) 23, Monocytes % (Manual) 13H, Eosinophils % ( Manual) 2, Basophils % (Manual) 0, Band Neutrophils 0, Platelet Estimate DecreasedL, Platelet Morphology Normal, Anisocytosis 1+, Sodium Level 141, Potassium Level 3.8, Chloride Level 106, Carbon Dioxide Level 29, Anion Gap 6, Blood Urea Nitrogen 12, Creatinine 0.8, Estimat Glomerular Filtration Rate , Glucose Level 107H, Calcium Level 8.4L, Total Bilirubin 0.7, Aspartate Amino Transf (AST/SGOT) 30, Alanine Aminotransferase (ALT/SGPT) 27, Alkaline Phosphatase 75, Total Protein 6.2L, Albumin 3.1L, Globulin 3.1, Albumin/ Globulin Ratio 1.0 Height (Feet): 5 Height (Inches): 7.00 Weight (Pounds): 155 General Appearance: no apparent distress, alert Neurologic: oriented x 3, responsive, depressed affect Lawanda Kiser MD May 24, 2018 12:08
--- NOTE | 2018-05-24 13:22 | NUR ---
CASE MANAGEMENT:REVIEW 05/24/18 SI: ACUTE ENCEPHALOPATHY. ANEMIA 97.2 65 18 103/64 96% ON RA H/H-8.5/26.6 PLT-77 IS: IV CLINDAMYCIN Q8HRS LAMISIL PO QD PROTONIX PO QD : MED/SURG STATUS [address] [facility]
--- NOTE | 2018-05-24 13:24 | NUR ---
CONTACT INFORMATION patient received visit from friend/roomate Miguel Díaz , who provided patient's son phone # .
[2018-05-24 16:00] VITALS: BP 107/59
--- NOTE | 2018-05-24 16:14 | Infectious Diseases Prog Note ---
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 (3) Acute alcoholic intoxication Assessment & Plan: continue supportive care , watch for DT (4) Encephalopathy acute Assessment & Plan: metabolic related, continue hydration Subjective Constitutional: Reports: no symptoms HEENT: Reports: no symptoms Respiratory: Reports: no symptoms Breasts: Reports: no symptoms Cardiovascular: Reports: no symptoms Gastrointestinal/Abdominal: Reports: no symptoms Genitourinary: Reports: no symptoms Neurologic: Reports: no symptoms Psychiatric: Reports: no symptoms Skin: Reports: no symptoms Endocrine: Reports: no symptoms Hematologic: Reports: no symptoms Musculoskeletal: Reports: no symptoms Allergies: Coded Allergies: No Known Allergies (Unverified , 11/23/17) Objective Vital Signs Last 24 Hour Vital Signs Date Time Temp Pulse Resp B/P (MAP) Pulse Ox O2 Delivery O2 Flow Rate FiO2 05/24/18 12:00 97.2 66 20 110/55 (73) 98 05/24/18 09:00 Room Air 05/24/18 08:00 97.2 65 18 103/64 (77) 96 05/24/18 04:00 98.2 61 18 122/65 (84) 97 05/24/18 00:00 98.0 18 112/61 (78) 100 05/23/18 21:00 Room Air 05/23/18 20:00 98.3 60 18 116/58 (77) 100 Height (Feet): 5 Height (Inches): 7.00 Weight (Pounds): 155 General Appearance: WD/WN, no acute distress HEENT: normocephalic, atraumatic, anicteric, mucous membranes moist, PERRL, EOMI, pharynx normal, supple, no JVD Respiratory/Chest: chest wall non-tender, lungs clear, normal breath sounds, no respiratory distress, no accessory muscle use Cardiovascular: normal peripheral pulses, normal rate, regular rhythm, no gallop/murmur, no JVD Abdomen: normal bowel sounds, soft, non tender, no organomegaly, non distended , no mass, no scars Extremities: no cyanosis, no clubbing Skin: no rash, no lesions, no ulcers Neurologic/Psychiatric: alert, responsive Lymphatic: no neck adenopathy, no groin adenopathy Musculoskeletal: normal muscle bulk, no effusion Microbiology Date/Time Source Procedure Growth Status 05/21/18 21:35 Wound Gram Stain - Final Resulted 05/21/18 21:35 Wound Wound Culture - Preliminary NO GROWTH AFTER 48 HOURS Resulted 05/21/18 21:20 Nasal Nares MRSA Culture - Final NO METHICILLIN RESISTANT STAPH AUREUS... Complete 05/21/18 21:20 Rectum - Final NO CARBAPENEM-RESISTANT ENTEROBACTERI... Complete 05/21/18 21:20 Rectum VRE Culture - Final Enterococcus Faecalis - Vre Complete Laboratory Tests Test 05/24/18 07:00 White Blood Count 6.7 K/UL (4.8-10.8) Red Blood Count 3.22 M/UL (4.70-6.10) L Hemoglobin 8.5 G/DL (14.2-18.0) L Hematocrit 26.6 % (42.0-52.0) L Mean Corpuscular Volume 83 FL (80-99) Mean Corpuscular Hemoglobin 26.5 PG (27.0-31.0) L Mean Corpuscular Hemoglobin Concent 32.1 G/DL (32.0-36.0) Red Cell Distribution Width 16.6 % (11.6-14.8) H Platelet Count 77 K/UL (150-450) L Mean Platelet Volume 12.5 FL (6.5-10.1) H Neutrophils (%) (Auto) % (45.0-75.0) Lymphocytes (%) (Auto) % (20.0-45.0) Monocytes (%) (Auto) % (1.0-10.0) Eosinophils (%) (Auto) % (0.0-3.0) Basophils (%) (Auto) % (0.0-2.0) Differential Total Cells Counted 100 Neutrophils % (Manual) 62 % (45-75) Lymphocytes % (Manual) 23 % (20-45) Monocytes % (Manual) 13 % (1-10) H Eosinophils % (Manual) 2 % (0-3) Basophils % (Manual) 0 % (0-2) Band Neutrophils 0 % (0-8) Platelet Estimate Decreased L Platelet Morphology Normal Anisocytosis 1+ Sodium Level 141 MMOL/L (136-145) Potassium Level 3.8 MMOL/L (3.5-5.1) Chloride Level 106 MMOL/L (98-107) Carbon Dioxide Level 29 MMOL/L (21-32) Anion Gap 6 mmol/L (5-15) Blood Urea Nitrogen 12 mg/dL (7-18) Creatinine 0.8 MG/DL (0.55-1.30) Estimat Glomerular Filtration Rate mL/min (>60) Glucose Level 107 MG/DL (74-106) H Calcium Level 8.4 MG/DL (8.5-10.1) L Total Bilirubin 0.7 MG/DL (0.2-1.0) Aspartate Amino Transf (AST/SGOT) 30 U/L (15-37) Alanine Aminotransferase (ALT/SGPT) 27 U/L (12-78) Alkaline Phosphatase 75 U/L (46-116) Total Protein 6.2 G/DL (6.4-8.2) L Albumin 3.1 G/DL (3.4-5.0) L Globulin 3.1 g/dL Albumin/Globulin Ratio 1.0 (1.0-2.7) Current Medications Medications (Trade) Dose Ordered Sig/Jenna Route PRN Reason Start Time Stop Time Status Last Admin Dose Admin Acetaminophen (Tylenol) 650 mg Q4H PRN ORAL Mild Pain/Temp > 100.5 05/21/18 22:15 06/20/18 22:14 Chlordiazepoxide (Librium) 25 mg Q6H PRN ORAL Agitation 05/22/18 11:30 05/29/18 11:29 Clindamycin HCl/ Dextrose 50 ml @ 100 mls/hr Q8H IV 05/22/18 03:00 05/29/18 02:59 05/24/18 10:51 Lorazepam (Ativan 2mg/ml 1ml) 1 mg Q6H PRN IV Agitation 05/22/18 11:30 05/29/18 00:14 Morphine Sulfate (Morphine Sulfate) 2 mg Q4H PRN IVP Severe Pain (Pain Scale 7-10) 05/21/18 22:15 05/28/18 22:14 Pantoprazole (Protonix) 40 mg DAILY ORAL 05/22/18 09:00 06/21/18 08:59 05/24/18 09:46 Quetiapine Fumarate (SEROquel) 25 mg Q6H PRN ORAL For Anxiety 05/21/18 23:00 06/20/18 22:59 Terbinafine HCl (LamISIL) 250 mg DAILY ORAL 05/23/18 09:00 05/30/18 08:59 05/24/18 09:19 Bret Lassiter M.D. May 24, 2018 16:14
--- NOTE | 2018-05-24 16:40 | NUR ---
Social Service Note SARINA met with patient to complete a home safety evaluation. Patient was alert and verbally responsive. Patient guarded in answering questions regarding family, social security and home situation. Patient with a previous ER visit for alcohol intoxication. Patient found down in the street at that time. Patient states he is currently residing at a friends house. Patient not born in the but has been in the for 40 years. Patient states he has no source of income. Patient states his friend supports him. Patient states he has a son and dgt and refused to provide SW contact information. Patient states he spoke with them since admission and friend may have left contact information. Patient states he fell in the bathroom and cut his leg. SW left a message for his friend Miguel Díaz [phone]. SARINA spoke with patient's dgt-in-law Giselle and obtained limited information. Giselle states she believes they saw patient about 5 years ago when patient's was stationed in [place]. Patient's son Alberto is not deployed at this time however will begin a training exercise for 6 weeks. Son is currently stationed in [place] and has no plans to visit [place] anytime soon per Giselle. SARINA discussed [employer] application and possible barriers. Giselle is unsure if patient is homeless and if patient is alcohol dependent. Giselle is only aware that patient lives with a friend who he used to work for. SARINA will request for [employer] [facility] to contact son/dgt-in-law. Will follow up with friend for returned placement. Recommend PT eval. Patient states he doesn't have a PMD or clinic for follow up care.
--- NOTE | 2018-05-24 19:20 | NUR ---
NURSE NOTES: Received a report from MIKE Torres. Pt is in stable condition. AAOX3. Able to make needs known. No respiratory distress noted. On room air. No c/o pain/discomfort. IV site is patent and intact. Bed in lowest position. Bed alarm is on. Call light within reach. Will continue to monitor.
--- NOTE | 2018-05-24 19:22 | NUR ---
HAND-OFF: Report given to MIKE Pak.
[2018-05-24 20:00] VITALS: BP 102/59
[2018-05-24] MEDS: Bactrim-DS 1 tab ORAL SCH (20:12)
[2018-05-25] VITALS: BP 116/59
[2018-05-25 04:00] VITALS: BP 105/62
--- NOTE | 2018-05-25 07:25 | NUR ---
HAND-OFF: Report given to MIKE Lopez.
--- NOTE | 2018-05-25 07:30 | NUR ---
NURSE NOTES: Received patient in bed, awake, verbally responsive. Not in acute respiratory/cardiac distress. IV intact, dressing on left lower ex's intact, no bleeding noted. Denies any pain or discomfort. Call light within reach, reminded patient to call nurses if needed. Bed is in lowest position and locked.Bed alarm is on. Will continue plan of care.
[2018-05-25 08:00] VITALS: BP 107/60
[2018-05-25] MEDS: Bactrim-DS 1 tab ORAL SCH ×2 (08:35→20:20)
--- NOTE | 2018-05-25 09:07 | NUR ---
NURSE NOTES: Rn recommended Dr. Sandra for PT services due to h/o multiple falls. Dr. Sandra agreed and Rn put the order.
[2018-05-25 09:47] LABS: HEMATOCRIT 27.9 % (42.0-52.0); HEMOGLOBIN 9.1 G/DL (14.2-18.0); MEAN CORPUSCULAR VOLUME 82 FL (80-99); PLATELET COUNT 78 K/UL (150-450); RED BLOOD COUNT 3.43 M/UL (4.70-6.10); RED CELL DISTRIBUTION WIDTH 17.1 % (11.6-14.8); WHITE BLOOD COUNT 6.3 K/UL (4.8-10.8)
[2018-05-25 10:08] LABS: ALANINE AMINOTRANSFERASE 25 U/L (12-78); ALBUMIN 3.2 G/DL (3.4-5.0); ALBUMIN/GLOBULIN RATIO 0.9 (1.0-2.7); ALKALINE PHOSPHATASE 81 U/L (46-116); ANION GAP 7 mmol/L (5-15); ASPARTATE AMINO TRANSFERASE 25 U/L (15-37); BILIRUBIN,TOTAL 0.7 MG/DL (0.2-1.0); BLOOD UREA NITROGEN 9 mg/dL (7-18); CALCIUM 8.6 MG/DL (8.5-10.1); CARBON DIOXIDE 28 MMOL/L (21-32); CHLORIDE 106 MMOL/L (98-107); CREATININE 0.9 MG/DL (0.55-1.30); POTASSIUM 3.5 MMOL/L (3.5-5.1); SODIUM 141 MMOL/L (136-145)
--- NOTE | 2018-05-25 11:46 | General Progress Note ---
Assessment/Plan Problem List: (1) Encephalopathy acute ICD Codes: G93.40 - Encephalopathy, unspecified SNOMED: 19874987, [id number] (2) Alcohol abuse ICD Codes: F10.10 - Alcohol abuse, uncomplicated SNOMED: 12132080 Status: stable Assessment/Plan risperdal 1mg po qhs the pt is not at imminent dts/dto however he needs family/friend/care information associate to assist him the pt was provided reality orientation Subjective Neurologic/Psychiatric: Reports: anxiety, emotional problems Allergies: Coded Allergies: No Known Allergies (Unverified , 11/23/17) Subjective the pt is alert however appeared more confused today. the pt didn't know the date. he still unable to remember the recent incident which led him to this current hospitalization Objective Last 24 Hour Vital Signs Date Time Temp Pulse Resp B/P (MAP) Pulse Ox O2 Delivery O2 Flow Rate FiO2 05/25/18 09:00 Room Air 05/25/18 08:00 98.1 65 18 107/60 (76) 98 05/25/18 04:00 97.5 59 18 105/62 (76) 98 05/25/18 00:00 97.5 59 17 116/59 (78) 97 05/24/18 21:00 Room Air 05/24/18 20:00 97.3 55 16 102/59 (73) 98 05/24/18 16:00 98.1 97 20 107/59 (75) 99 05/24/18 12:00 97.2 66 20 110/55 (73) 98 Intake and Output 05/24/18 05/25/18 19:00 07:00 Intake Total 1750 ml Output Total 1601 ml Balance 149 ml Intake Oral 1700 ml IV Total 50 ml Output Urine Total 1600 ml Stool Total 1 ml # Voids 5 Laboratory Tests 05/25/18 08:55: White Blood Count 6.3, Red Blood Count 3.43L, Hemoglobin 9.1L, Hematocrit 27.9L , Mean Corpuscular Volume 82, Mean Corpuscular Hemoglobin 26.7L, Mean Corpuscular Hemoglobin Concent 32.7, Red Cell Distribution Width 17.1H, Platelet Count 78L, Mean Platelet Volume 11.6H, Neutrophils (%) (Auto) , Lymphocytes (%) (Auto) , Monocytes (%) (Auto) , Eosinophils (%) (Auto) , Basophils (%) (Auto) , Differential Total Cells Counted 100, Neutrophils % ( Manual) 60, Lymphocytes % (Manual) 25, Monocytes % (Manual) 13H, Eosinophils % ( Manual) 2, Basophils % (Manual) 0, Band Neutrophils 0, Platelet Estimate DecreasedL, Platelet Morphology Normal, Hypochromasia 2+, Anisocytosis 1+, Spherocytes 1+, Sodium Level 141, Potassium Level 3.5, Chloride Level 106, Carbon Dioxide Level 28, Anion Gap 7, Blood Urea Nitrogen 9, Creatinine 0.9, Estimat Glomerular Filtration Rate , Glucose Level 120H, Calcium Level 8.6, Total Bilirubin 0.7, Aspartate Amino Transf (AST/SGOT) 25, Alanine Aminotransferase (ALT/SGPT) 25, Alkaline Phosphatase 81, Total Protein 6.7, Albumin 3.2L, Globulin 3.5, Albumin/Globulin Ratio 0.9L Height (Feet): 5 Height (Inches): 7.00 Weight (Pounds): 155 General Appearance: alert, confused - waxing and waning Lawanda Kiser MD May 25, 2018 11:46
[2018-05-25 12:00] VITALS: BP 127/61
--- NOTE | 2018-05-25 12:02 | General Progress Note ---
Assessment/Plan Assessment/Plan S: I am doing ok O: patient is more alert, appears comfortable, poor historian Exam: Head and Neck: AT/NC , Chest: clear , Heart: S1Se RR, Abd: soft, BS are normal , MS: wide base gate ., right LE cellulitis, appropriately dressed , Neuro: AOx 3 , declined cognition, ASSESSMENT: 1. Acute encephalopathy. Differential diagnosis is metabolic versus encephalomalacia. 2. Cellulitis of left lower extremity. 3. Trauma and laceration to the left lower extremity followed by profuse bleeding. 4. SIRS. 5. Thrombocytopenia. 6. Dementia 6. Acute anemia. 7. GI and DVT prophylaxis. Plan: Will monitor Neuro check. Placement/Next Keen PT eval Subjective Allergies: Coded Allergies: No Known Allergies (Unverified , 11/23/17) Objective Last 24 Hour Vital Signs Date Time Temp Pulse Resp B/P (MAP) Pulse Ox O2 Delivery O2 Flow Rate FiO2 05/25/18 09:00 Room Air 05/25/18 08:00 98.1 65 18 107/60 (76) 98 05/25/18 04:00 97.5 59 18 105/62 (76) 98 05/25/18 00:00 97.5 59 17 116/59 (78) 97 05/24/18 21:00 Room Air 05/24/18 20:00 97.3 55 16 102/59 (73) 98 05/24/18 16:00 98.1 97 20 107/59 (75) 99 Intake and Output 05/24/18 05/25/18 19:00 07:00 Intake Total 1750 ml Output Total 1601 ml Balance 149 ml Intake Oral 1700 ml IV Total 50 ml Output Urine Total 1600 ml Stool Total 1 ml # Voids 5 Laboratory Tests 05/25/18 08:55: White Blood Count 6.3, Red Blood Count 3.43L, Hemoglobin 9.1L, Hematocrit 27.9L , Mean Corpuscular Volume 82, Mean Corpuscular Hemoglobin 26.7L, Mean Corpuscular Hemoglobin Concent 32.7, Red Cell Distribution Width 17.1H, Platelet Count 78L, Mean Platelet Volume 11.6H, Neutrophils (%) (Auto) , Lymphocytes (%) (Auto) , Monocytes (%) (Auto) , Eosinophils (%) (Auto) , Basophils (%) (Auto) , Differential Total Cells Counted 100, Neutrophils % ( Manual) 60, Lymphocytes % (Manual) 25, Monocytes % (Manual) 13H, Eosinophils % ( Manual) 2, Basophils % (Manual) 0, Band Neutrophils 0, Platelet Estimate DecreasedL, Platelet Morphology Normal, Hypochromasia 2+, Anisocytosis 1+, Spherocytes 1+, Sodium Level 141, Potassium Level 3.5, Chloride Level 106, Carbon Dioxide Level 28, Anion Gap 7, Blood Urea Nitrogen 9, Creatinine 0.9, Estimat Glomerular Filtration Rate , Glucose Level 120H, Calcium Level 8.6, Total Bilirubin 0.7, Aspartate Amino Transf (AST/SGOT) 25, Alanine Aminotransferase (ALT/SGPT) 25, Alkaline Phosphatase 81, Total Protein 6.7, Albumin 3.2L, Globulin 3.5, Albumin/Globulin Ratio 0.9L Height (Feet): 5 Height (Inches): 7.00 Weight (Pounds): 155 Dorina Sandra MD May 25, 2018 12:02
--- NOTE | 2018-05-25 12:12 | NUR ---
AMMUNITION SPECIALISTFOOD BEVERAGE SUPERVISOR SI: ARACELI T. 98.0 HR 58 RR 18 B/P 127/68 IS: BACTRIM DS PO LAMISIL PROTONIX PO SEROQUEL PO MED/SURG STATUS
--- NOTE | 2018-05-25 14:08 | NUR ---
P.T Note: P.T evalaution completed and treatment initiated. Please refer to P.T evaluation for current functional status. Pt presented generalized weakness affecting balance and safety with functional activities/mobilities. P.T will benefit from skilled P.T to improve strength, balance and endurance to increase functional mobility independence and safety.Recommend SNF for further rehab or home P.T . DME to include FWW. Addendum: 05/25/18 at 1408 by OBEY GANN PT Amended: Links added.
--- NOTE | 2018-05-25 15:37 | NUR ---
Social Service Note SARINA spoke with patient's friend Miguel Díaz [phone] who states patient is homeless however is always welcome to stay at his house. Ed states patient has been staying with him for about 10 years on and off. Ed's previous roommate was the boss of patient when he was able to work. Ed states if patient will require assistance he would be unable to provide patient support. [facility] spoke with patient's [id number] to obtain history, social security number and confirm patient's name. SARINA located patient's dgt Dee Cosby DDS in [place] [phone]. Dgt states she cannot recall the last time she has seen patient. Dgt states she spoke with patient in 2016 to inform him that her mother (his ex-) . Dgt states she has been estranged from patient for quite sometime. Alex Cosby is her half brother. Dee states she is unable to provide support to patient and at this time would not come to [place] to visit patient. Dee states she will contact her brother Alex to discuss further. Dee was under the impression patient struggled with alcoholism. Dee states patient's [id number] [place] would be the person to contact regarding history or personal information regarding patient. APS report completed [phone] file #[id number] Will continue to monitor.
[2018-05-25 16:00] VITALS: BP 110/53
--- NOTE | 2018-05-25 17:00 | NUR ---
NURSE NOTES: Dressing change done on left lower ex's, wound is clean and dry, no bleeding or s/s of infection @ this time.
--- NOTE | 2018-05-25 19:15 | NUR ---
HAND-OFF: Report given to Sujata.
[2018-05-25 20:00] VITALS: BP 111/62
[2018-05-26] VITALS: BP 123/70
[2018-05-26 04:00] VITALS: BP 116/59
--- NOTE | 2018-05-26 07:10 | NUR ---
HAND-OFF: Report given to MIKE Clemente.
--- NOTE | 2018-05-26 07:15 | NUR ---
NURSE NOTES: Pt received from MIKE Ernst alert and oriented x2 with no complaints or s/s of pain, SOB, or n/v. Pt is sitting up in bed, eating breakfast. IV site asymptomatic and patent, on saline lock. Bed in lowest position, call light and belongings within reach.
[2018-05-26 08:00] VITALS: BP 104/56
[2018-05-26] MEDS: Bactrim-DS 1 tab ORAL SCH ×2 (08:38→21:16)
[2018-05-26 12:00] VITALS: BP 106/56
--- NOTE | 2018-05-26 13:07 | NUR ---
CASE MANAGEMENT:REVIEW 05/26/18 SI: ACUTE ENCEPHALOPATHY. ANEMIA 98.0 55 22 104/56 97% ON RA IS: IV CLINDAMYCIN Q8HRS LAMISIL PO QD PROTONIX PO QD : MED/SURG STATUS 4 EAST
--- NOTE | 2018-05-26 13:25 | General Progress Note ---
Assessment/Plan Assessment/Plan S: I am doing ok O: patient is more alert, appears comfortable, poor historian Exam: Head and Neck: AT/NC , Chest: clear , Heart: S1Se RR, Abd: soft, BS are normal , MS: wide base gate ., right LE cellulitis, appropriately dressed , Neuro: AOx 3 , declined cognition, ASSESSMENT: 1. Acute encephalopathy. Differential diagnosis is metabolic versus encephalomalacia. 2. Cellulitis of left lower extremity. 3. Trauma and laceration to the left lower extremity followed by profuse bleeding. 4. SIRS. 5. Thrombocytopenia. 6. Dementia 6. Acute anemia. 7. GI and DVT prophylaxis. Plan: Will monitor Neuro check. Placement/Next Keen PT eval Subjective Allergies: Coded Allergies: No Known Allergies (Unverified , 11/23/17) Objective Last 24 Hour Vital Signs Date Time Temp Pulse Resp B/P (MAP) Pulse Ox O2 Delivery O2 Flow Rate FiO2 05/26/18 09:00 Room Air 05/26/18 08:00 98.0 65 22 104/56 (72) 97 05/26/18 04:00 98.1 55 17 116/59 (78) 95 05/26/18 00:00 98.7 59 16 123/70 (87) 98 05/25/18 21:00 Room Air 05/25/18 20:00 98.7 58 17 111/62 (78) 97 05/25/18 16:00 98.8 60 18 110/53 (72) 98 Intake and Output 05/25/18 05/26/18 18:59 06:59 Intake Total 960 ml 600 ml Output Total 800 ml 2000 ml Balance 160 ml -1400 ml Intake Oral 960 ml 600 ml Output Urine Total 800 ml 2000 ml Height (Feet): 5 Height (Inches): 7.00 Weight (Pounds): 157 Dorina Sandra MD May 26, 2018 13:25
[2018-05-26 16:00] VITALS: BP 123/63
--- NOTE | 2018-05-26 16:43 | Infectious Diseases Prog Note ---
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 with occ therapist (3) Acute alcoholic intoxication Assessment & Plan: continue supportive care , watch for DT (4) Encephalopathy acute Assessment & Plan: metabolic related, continue hydration Subjective Constitutional: Reports: no symptoms HEENT: Reports: no symptoms Respiratory: Reports: no symptoms Breasts: Reports: no symptoms Cardiovascular: Reports: no symptoms Gastrointestinal/Abdominal: Reports: no symptoms Genitourinary: Reports: no symptoms Neurologic: Reports: no symptoms Psychiatric: Reports: no symptoms Skin: Reports: no symptoms Endocrine: Reports: no symptoms Hematologic: Reports: no symptoms Musculoskeletal: Reports: no symptoms Allergies: Coded Allergies: No Known Allergies (Unverified , 11/23/17) Objective Vital Signs Last 24 Hour Vital Signs Date Time Temp Pulse Resp B/P (MAP) Pulse Ox O2 Delivery O2 Flow Rate FiO2 05/26/18 16:00 99.6 106 17 123/63 (83) 95 05/26/18 12:00 98.9 57 19 106/56 (73) 96 05/26/18 09:00 Room Air 05/26/18 08:00 98.0 65 22 104/56 (72) 97 05/26/18 04:00 98.1 55 17 116/59 (78) 95 05/26/18 00:00 98.7 59 16 123/70 (87) 98 05/25/18 21:00 Room Air 05/25/18 20:00 98.7 58 17 111/62 (78) 97 Height (Feet): 5 Height (Inches): 7.00 Weight (Pounds): 157 General Appearance: WD/WN, no acute distress HEENT: normocephalic, atraumatic, anicteric, mucous membranes moist, PERRL Respiratory/Chest: chest wall non-tender, lungs clear, normal breath sounds, no respiratory distress, no accessory muscle use Cardiovascular: normal peripheral pulses, normal rate, regular rhythm, no gallop/murmur, no JVD Abdomen: normal bowel sounds, soft, non tender, no organomegaly, non distended , no mass, no scars Genitourinary: normal external genitalia Extremities: no cyanosis, no clubbing Skin: no rash, no lesions, no ulcers Neurologic/Psychiatric: alert, responsive Lymphatic: no neck adenopathy, no groin adenopathy Current Medications Medications (Trade) Dose Ordered Sig/Jenna Route PRN Reason Start Time Stop Time Status Last Admin Dose Admin Acetaminophen (Tylenol) 650 mg Q4H PRN ORAL Mild Pain/Temp > 100.5 05/21/18 22:15 06/20/18 22:14 Chlordiazepoxide (Librium) 25 mg Q6H PRN ORAL Agitation 05/22/18 11:30 05/29/18 11:29 Lorazepam (Ativan 2mg/ml 1ml) 1 mg Q6H PRN IV Agitation 05/22/18 11:30 05/29/18 00:14 Morphine Sulfate (Morphine Sulfate) 2 mg Q4H PRN IVP Severe Pain (Pain Scale 7-10) 05/21/18 22:15 05/28/18 22:14 Pantoprazole (Protonix) 40 mg DAILY ORAL 05/22/18 09:00 06/21/18 08:59 05/26/18 08:38 Quetiapine Fumarate (SEROquel) 25 mg Q6H PRN ORAL For Anxiety 05/21/18 23:00 06/20/18 22:59 Terbinafine HCl (LamISIL) 250 mg DAILY ORAL 05/23/18 09:00 05/30/18 08:59 05/26/18 08:38 Trimethoprim/ Sulfamethoxazole (Bactrim-DS) 1 tab Q12HR ORAL 05/24/18 21:00 05/31/18 20:59 05/26/18 08:38 Bret Lassiter M.D. May 26, 2018 16:43
--- NOTE | 2018-05-26 19:54 | NUR ---
NURSE NOTES: Received patient on bed awake, no s/s of any distress, denies any pain. IV line patent and intact. Bed in low position and locked, call light within reach, will continue to monitor.
--- NOTE | 2018-05-26 19:54 | NUR ---
HAND-OFF: Report given to Shawna Turner RN.
[2018-05-26 20:00] VITALS: BP 105/59
--- NOTE | 2018-05-26 22:55 | General Progress Note ---
Assessment/Plan Problem List: (1) Encephalopathy acute ICD Codes: G93.40 - Encephalopathy, unspecified SNOMED: 71769177, [id number] (2) Alcohol abuse ICD Codes: F10.10 - Alcohol abuse, uncomplicated SNOMED: 87388273 Status: stable Assessment/Plan risperdal 1mg po qhs the pt is not at imminent dts/dto however he needs family/friend/child care sitter to assist him the pt was provided reality orientation Subjective Neurologic/Psychiatric: Reports: anxiety, emotional problems Allergies: Coded Allergies: No Known Allergies (Unverified , 11/23/17) Subjective the pt is the same Objective Last 24 Hour Vital Signs Date Time Temp Pulse Resp B/P (MAP) Pulse Ox O2 Delivery O2 Flow Rate FiO2 05/26/18 19:00 Room Air 05/26/18 16:00 99.6 106 17 123/63 (83) 95 05/26/18 12:00 98.9 57 19 106/56 (73) 96 05/26/18 09:00 Room Air 05/26/18 08:00 98.0 65 22 104/56 (72) 97 05/26/18 04:00 98.1 55 17 116/59 (78) 95 05/26/18 00:00 98.7 59 16 123/70 (87) 98 Intake and Output 05/25/18 05/26/18 19:00 07:00 Intake Total 960 ml 600 ml Output Total 800 ml 2000 ml Balance 160 ml -1400 ml Intake Oral 960 ml 600 ml Output Urine Total 800 ml 2000 ml Height (Feet): 5 Height (Inches): 7.00 Weight (Pounds): 157 General Appearance: alert, thin Neurologic: oriented x 3, responsive, depressed affect Lawanda Kiser MD May 26, 2018 22:55
[2018-05-27] VITALS: BP 110/64
[2018-05-27 04:00] VITALS: BP 128/56
--- NOTE | 2018-05-27 07:24 | NUR ---
NURSE NOTES: Patient received in stable condition, eating breakfast in bed. Alert and oriented, breathing unlabored on room air. No s/s of respiratory distress observed. Denies pain or discomfort at this time. IV site on left wrist patent and intact. Urinal by bedside. Bed locked and set in low position. Call light within reach, will continue to monitor.
--- NOTE | 2018-05-27 07:28 | NUR ---
HAND-OFF: Report given to Melissa MCKEON.
[2018-05-27 08:00] VITALS: BP 114/50
[2018-05-27] MEDS: Bactrim-DS 1 tab ORAL SCH ×2 (08:32→20:12)
[2018-05-27 12:00] VITALS: BP 114/59
--- NOTE | 2018-05-27 13:00 | General Progress Note ---
Assessment/Plan Assessment/Plan S: I am doing ok O: patient is more alert, appears comfortable, poor historian Exam: Head and Neck: AT/NC , Chest: clear , Heart: S1Se RR, Abd: soft, BS are normal , MS: wide base gate ., right LE cellulitis, appropriately dressed , Neuro: AOx 3 , declined cognition, ASSESSMENT: 1. Acute encephalopathy. Differential diagnosis is metabolic versus encephalomalacia: Resolved 2. Cellulitis of left lower extremity. 3. Trauma and laceration to the left lower extremity followed by profuse bleeding. 4. SIRS. 5. Thrombocytopenia. 6. Dementia 6. Acute anemia. 7. GI and DVT prophylaxis. Plan: Will monitor Neuro check. Placement/Next Keen PT eval Subjective Allergies: Coded Allergies: No Known Allergies (Unverified , 11/23/17) Objective Last 24 Hour Vital Signs Date Time Temp Pulse Resp B/P (MAP) Pulse Ox O2 Delivery O2 Flow Rate FiO2 05/27/18 09:00 Room Air 05/27/18 08:00 98.6 62 20 114/50 (71) 95 05/27/18 04:00 98.0 63 17 128/56 (80) 98 05/27/18 00:00 98.9 65 19 110/64 (79) 97 05/26/18 20:00 98.2 59 16 105/59 (74) 96 05/26/18 19:00 Room Air 05/26/18 16:00 99.6 106 17 123/63 (83) 95 Intake and Output 05/26/18 05/27/18 18:59 06:59 Intake Total 820 ml Output Total 1600 ml 800 ml Balance -780 ml -800 ml Intake Oral 820 ml Output Urine Total 1600 ml 800 ml Height (Feet): 5 Height (Inches): 7.00 Weight (Pounds): 157 Dorina Sandra MD May 27, 2018 13:00
--- NOTE | 2018-05-27 14:44 | NUR ---
Social Service Note SARINA spoke with patient friend Miguel Díaz [phone] and confirmed patient may return to his residence. SARINA arranged a follow up appointment with [facility], [facility]. [id number] at 9am on May 31. SARINA faxed financial counselor at [facility] [phone] [facility] information regarding pending case at [place] [address], Eduard Mckee, File #[id number] Case #[id number]. Patient can return to [facility] [place] [facility] [address] via taxi. Mr. Díaz will be home after 330pm. SARINA discussed with charge nurse to obtain prescriptions for medications. SARINA informed primary nurse once prescriptions are obtained, prescriptions to be provided to [facility] for a 72 hour supply. Discharge instruction to include follow up appointed and discharged medications.
--- NOTE | 2018-05-27 15:11 | NUR ---
MACHINE TOOL OPERATORTIME CLOCK INSPECTOR SI: ARACELI Amador 98.6 HR 60 RR 20 B/P 114/59 RA 98% IS: BACTRIM DS PO LAMISIL PROTONIX PO MED/SURG STATUS
[2018-05-27 16:00] VITALS: BP 105/59
--- NOTE | 2018-05-27 16:46 | Infectious Diseases Prog Note ---
Assessment/Plan Problems: (1) Infected nail bed of toe Assessment & Plan: continue bactrim for 4 more days (2) Onychomycosis Assessment & Plan: continue lamisil for three months , follow up with baseball hand sewer (3) Acute alcoholic intoxication Assessment & Plan: continue supportive care , watch for DT (4) Encephalopathy acute Assessment & Plan: metabolic related, continue hydration Subjective Constitutional: Reports: no symptoms HEENT: Reports: no symptoms Respiratory: Reports: no symptoms Breasts: Reports: no symptoms Cardiovascular: Reports: no symptoms Gastrointestinal/Abdominal: Reports: no symptoms Genitourinary: Reports: no symptoms Neurologic: Reports: no symptoms Psychiatric: Reports: no symptoms Skin: Reports: no symptoms Endocrine: Reports: no symptoms Hematologic: Reports: no symptoms Musculoskeletal: Reports: no symptoms Allergies: Coded Allergies: No Known Allergies (Unverified , 11/23/17) Objective Vital Signs Last 24 Hour Vital Signs Date Time Temp Pulse Resp B/P (MAP) Pulse Ox O2 Delivery O2 Flow Rate FiO2 05/27/18 12:00 98.6 60 20 114/59 (77) 97 05/27/18 09:00 Room Air 05/27/18 08:00 98.6 62 20 114/50 (71) 95 05/27/18 04:00 98.0 63 17 128/56 (80) 98 05/27/18 00:00 98.9 65 19 110/64 (79) 97 05/26/18 20:00 98.2 59 16 105/59 (74) 96 05/26/18 19:00 Room Air Height (Feet): 5 Height (Inches): 7.00 Weight (Pounds): 157 General Appearance: WD/WN, no acute distress HEENT: normocephalic, atraumatic, anicteric, mucous membranes moist, PERRL, supple, no JVD Respiratory/Chest: chest wall non-tender, lungs clear, normal breath sounds, no respiratory distress, no accessory muscle use, decreased breath sounds Cardiovascular: normal peripheral pulses, normal rate, regular rhythm, no gallop/murmur, no JVD Abdomen: normal bowel sounds, soft, non tender, no organomegaly, non distended , no mass, no scars Extremities: no cyanosis, no clubbing Skin: no rash, no lesions, no ulcers Neurologic/Psychiatric: alert, oriented x 3 Lymphatic: no neck adenopathy, no groin adenopathy Musculoskeletal: normal muscle bulk, no effusion Current Medications Medications (Trade) Dose Ordered Sig/Jenna Route PRN Reason Start Time Stop Time Status Last Admin Dose Admin Acetaminophen (Tylenol) 650 mg Q4H PRN ORAL Mild Pain/Temp > 100.5 05/21/18 22:15 06/20/18 22:14 Chlordiazepoxide (Librium) 25 mg Q6H PRN ORAL Agitation 05/22/18 11:30 05/29/18 11:29 Lorazepam (Ativan 2mg/ml 1ml) 1 mg Q6H PRN IV Agitation 05/22/18 11:30 05/29/18 00:14 Morphine Sulfate (Morphine Sulfate) 2 mg Q4H PRN IVP Severe Pain (Pain Scale 7-10) 05/21/18 22:15 05/28/18 22:14 Pantoprazole (Protonix) 40 mg DAILY ORAL 05/22/18 09:00 06/21/18 08:59 05/27/18 08:32 Quetiapine Fumarate (SEROquel) 25 mg Q6H PRN ORAL For Anxiety 05/21/18 23:00 06/20/18 22:59 Terbinafine HCl (LamISIL) 250 mg DAILY ORAL 05/23/18 09:00 05/30/18 08:59 05/27/18 08:32 Trimethoprim/ Sulfamethoxazole (Bactrim-DS) 1 tab Q12HR ORAL 05/24/18 21:00 05/31/18 20:59 05/27/18 08:32 Bret Lassiter M.D. May 27, 2018 16:46
--- NOTE | 2018-05-27 19:22 | NUR ---
HAND-OFF: Report given to Dawna MCKEON.
--- NOTE | 2018-05-27 19:58 | NUR ---
NURSE NOTES: Patient in bed awake and alert, forgetful, no s/s distress noted. Urinal at the bedside. Bed in lowest position for safety, bed alarm on. Call light within reach.
[2018-05-27 20:00] VITALS: BP 115/56
--- NOTE | 2018-05-27 23:20 | General Progress Note ---
Assessment/Plan Problem List: (1) Encephalopathy acute ICD Codes: G93.40 - Encephalopathy, unspecified SNOMED: 42157737, 376312330 (2) Alcohol abuse ICD Codes: F10.10 - Alcohol abuse, uncomplicated SNOMED: 03182057 Assessment/Plan risperdal 1mg po qhs the pt is not at imminent dts/dto however he needs family/friend/direct support professional caregiver to assist him the pt was provided reality orientation Subjective Neurologic/Psychiatric: Reports: anxiety, depressed, emotional problems Allergies: Coded Allergies: No Known Allergies (Unverified , 11/23/17) Subjective the pt is the same Objective Last 24 Hour Vital Signs Date Time Temp Pulse Resp B/P (MAP) Pulse Ox O2 Delivery O2 Flow Rate FiO2 05/27/18 21:00 Room Air 05/27/18 20:00 99.0 70 18 115/56 (75) 96 05/27/18 16:00 98.2 59 20 105/59 (74) 97 05/27/18 12:00 98.6 60 20 114/59 (77) 97 05/27/18 09:00 Room Air 05/27/18 08:00 98.6 62 20 114/50 (71) 95 05/27/18 04:00 98.0 63 17 128/56 (80) 98 05/27/18 00:00 98.9 65 19 110/64 (79) 97 Intake and Output 05/26/18 05/27/18 19:00 07:00 Intake Total 820 ml Output Total 1600 ml 800 ml Balance -780 ml -800 ml Intake Oral 820 ml Output Urine Total 1600 ml 800 ml Height (Feet): 5 Height (Inches): 7.00 Weight (Pounds): 157 General Appearance: no apparent distress, alert, thin Neurologic: oriented x 3, responsive, depressed affect Lawanda Kiser MD May 27, 2018 23:20
[2018-05-28] VITALS: BP 109/55
[2018-05-28 04:00] VITALS: BP 119/70
--- NOTE | 2018-05-28 07:25 | NUR ---
HAND-OFF: Report given to Baldev MCKEON.
--- NOTE | 2018-05-28 07:51 | NUR ---
NURSE NOTES: Received patient from Dawna MCKEON, patient is up in bed resting, alert, no distress noted, bed is locked and in lowest position, call light within reach, will continue to monitor.
[2018-05-28 08:00] VITALS: BP 119/61
[2018-05-28] MEDS: Bactrim-DS 1 tab ORAL SCH ×2 (08:35→20:23)
[2018-05-28] MEDS ORDERED: BACTRIM-DS1 EA ORAL (10:43)
[2018-05-28 12:00] VITALS: BP 111/61
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
--- NOTE | 2018-05-28 14:19 | NUR ---
Social Service Note Patient discharged. Patient will return home to friend's house with FWW and medications. Discharge instructions must include follow appointment [facility], [address] [facility]. [phone] at 9am on May 31. Nurse to contact friend Miguel Díaz [phone] to confirm he is at the residence. Patient will dc via taxi. APS SW assigned Vance [phone] and informed of dc for today.
--- NOTE | 2018-05-28 15:37 | General Progress Note ---
Assessment/Plan Problem List: (1) Encephalopathy acute ICD Codes: G93.40 - Encephalopathy, unspecified SNOMED: 11651404, 692070395 (2) Alcohol abuse ICD Codes: F10.10 - Alcohol abuse, uncomplicated SNOMED: 92978305 Assessment/Plan risperdal 1mg po qhs the pt is not at imminent dts/dto however he needs family/friend/child day care teacher to assist him the pt was provided reality orientation Subjective Neurologic/Psychiatric: Reports: anxiety, depressed, emotional problems Allergies: Coded Allergies: No Known Allergies (Unverified , 11/23/17) Subjective the pt is the same no ad able to answer the questions. Objective Last 24 Hour Vital Signs Date Time Temp Pulse Resp B/P (MAP) Pulse Ox O2 Delivery O2 Flow Rate FiO2 05/28/18 12:00 98.1 59 18 111/61 (78) 96 05/28/18 08:00 Room Air 05/28/18 08:00 98.3 64 19 119/61 (80) 95 05/28/18 04:00 98.0 56 18 119/70 (86) 96 05/28/18 00:00 98.5 60 16 109/55 (73) 96 05/27/18 21:00 Room Air 05/27/18 20:00 99.0 70 18 115/56 (75) 96 05/27/18 16:00 98.2 59 20 105/59 (74) 97 Intake and Output 05/27/18 05/28/18 18:59 06:59 Intake Total 1100 ml 360 ml Output Total 1900 ml 1200 ml Balance -800 ml -840 ml Intake Oral 1100 ml 360 ml Output Urine Total 1900 ml 1200 ml Height (Feet): 5 Height (Inches): 7.00 Weight (Pounds): 157 General Appearance: no apparent distress, alert, thin Neurologic: oriented x 3, responsive, depressed affect Lawanda Kiser MD May 28, 2018 15:37
[2018-05-28 16:00] VITALS: BP 120/63
--- NOTE | 2018-05-28 19:39 | NUR ---
HAND-OFF: Report given to Mary MCKEON.
--- NOTE | 2018-05-28 19:46 | NUR ---
NURSE NOTES: Patient received in bed, awake, calm. No signs of acute distress at this time. Call light within reach. Will continue to mnitor.
[2018-05-28 20:00] VITALS: BP 115/67
[2018-05-29] VITALS: BP 127/78
[2018-05-29 04:00] VITALS: BP 106/62
--- NOTE | 2018-05-29 07:20 | NUR ---
Pt in bed a/o x 4 in no acute distress having breakfast. Patent IV to left wrist, urinal at bedside. Pt denies pain. Dressing to left heel intact. Pt left in bed in low position, call light within reach, skid socks on.
--- NOTE | 2018-05-29 07:43 | NUR ---
HAND-OFF: Report given to Adele MCKEON.
[2018-05-29 08:00] VITALS: BP 116/58
[2018-05-29] MEDS: Bactrim-DS 1 tab ORAL SCH (08:29)
[2018-05-29 12:00] VITALS: BP 116/66
--- NOTE | 2018-05-29 14:35 | NUR ---
CHARGE NURSE NOTE: Pt is scheduled to be discharged today. Spoke with pt's sister. She concerned that physical therapist did not teach patient how to use a walker up and down stairs. Erwin, PT notified, and they will work with patient and teach him how to use walker on stairs.
--- NOTE | 2018-05-29 14:48 | Infectious Diseases Prog Note ---
Assessment/Plan Problems: (1) Infected nail bed of toe Assessment & Plan: continue bactrim for 4 more days (2) Onychomycosis Assessment & Plan: continue lamisil for three months , follow up with ob/gyn nurse (3) Acute alcoholic intoxication Assessment & Plan: continue supportive care , watch for DT (4) Encephalopathy acute Assessment & Plan: metabolic related, continue hydration Subjective Constitutional: Reports: no symptoms HEENT: Reports: no symptoms Respiratory: Reports: no symptoms Breasts: Reports: no symptoms Cardiovascular: Reports: no symptoms Gastrointestinal/Abdominal: Reports: no symptoms Genitourinary: Reports: no symptoms Neurologic: Reports: no symptoms Psychiatric: Reports: no symptoms Skin: Reports: no symptoms Endocrine: Reports: no symptoms Hematologic: Reports: no symptoms Allergies: Coded Allergies: No Known Allergies (Unverified , 11/23/17) Objective Vital Signs Last 24 Hour Vital Signs Date Time Temp Pulse Resp B/P (MAP) Pulse Ox O2 Delivery O2 Flow Rate FiO2 05/29/18 12:00 97.7 58 18 116/66 (83) 97 05/29/18 09:00 Room Air 05/29/18 08:00 98.0 60 20 116/58 (77) 96 05/29/18 04:00 97.2 55 18 106/62 (77) 97 05/29/18 00:00 97.6 60 18 127/78 (94) 98 05/28/18 21:00 Room Air 05/28/18 20:00 98.3 62 18 115/67 (83) 97 05/28/18 16:00 97.9 63 19 120/63 (82) 97 Height (Feet): 5 Height (Inches): 7.00 Weight (Pounds): 157 General Appearance: WD/WN, no acute distress HEENT: normocephalic, atraumatic, anicteric, mucous membranes moist, PERRL Respiratory/Chest: chest wall non-tender, lungs clear, normal breath sounds, no respiratory distress, no accessory muscle use Cardiovascular: normal peripheral pulses, normal rate, regular rhythm, no JVD Abdomen: normal bowel sounds, soft, non tender, no organomegaly, non distended , no mass, no scars Genitourinary: normal external genitalia Extremities: no cyanosis, no clubbing Skin: no rash, no lesions, no ulcers Neurologic/Psychiatric: alert, oriented x 3 Lymphatic: no neck adenopathy, no groin adenopathy Current Medications Medications (Trade) Dose Ordered Sig/Jenna Route PRN Reason Start Time Stop Time Status Last Admin Dose Admin Acetaminophen (Tylenol) 650 mg Q4H PRN ORAL Mild Pain/Temp > 100.5 05/21/18 22:15 06/20/18 22:14 Pantoprazole (Protonix) 40 mg DAILY ORAL 05/22/18 09:00 06/21/18 08:59 05/29/18 08:29 Quetiapine Fumarate (SEROquel) 25 mg Q6H PRN ORAL For Anxiety 05/21/18 23:00 06/20/18 22:59 Terbinafine HCl (LamISIL) 250 mg DAILY ORAL 05/23/18 09:00 05/30/18 08:59 05/29/18 08:30 Trimethoprim/ Sulfamethoxazole (Bactrim-DS) 1 tab Q12HR ORAL 05/24/18 21:00 05/31/18 20:59 05/29/18 08:29 Bret Lassiter M.D. May 29, 2018 14:48
[2018-05-29 16:00] VITALS: BP 120/63
--- NOTE | 2018-05-29 17:44 | NUR ---
NURSE NOTES: Pt discharged in stable condition with friend Yosef and walker. Pt ambulated with PT and with nurse around unit with walker pt able to utilize walker, assists with balance. Yosef asked if pt can stay until Thursday to obtain possible placement in intermediate, pt does not have insurance. Asked charge nurse, charge nurse came to see patient and informed Yosef and pt they are unable to stay until Thursday, pt is discharged today. Yosef verbalized understanding. Pt left with all belongings, hand delivered packet, and hand delivered Bactrim Rx. Yosef and patient highly encouraged to call back Thursday and discuss with case management options for nursing homes. IV to left wrist removed, applied pressure, no bleeding.
--- NOTE | 2018-05-29 23:41 | General Progress Note ---
Assessment/Plan Problem List: (1) Encephalopathy acute ICD Codes: G93.40 - Encephalopathy, unspecified SNOMED: 18265725, 594274950 (2) Alcohol abuse ICD Codes: F10.10 - Alcohol abuse, uncomplicated SNOMED: 08932774 Assessment/Plan risperdal 1mg po qhs the pt is not at imminent dts/dto however he needs family/friend/health care recruiter to assist him the pt was provided reality orientation Subjective Neurologic/Psychiatric: Reports: anxiety, depressed, emotional problems Allergies: Coded Allergies: No Known Allergies (Unverified , 11/23/17) Subjective the pt is the same no ad able to answer the questions. Objective Last 24 Hour Vital Signs Date Time Temp Pulse Resp B/P (MAP) Pulse Ox O2 Delivery O2 Flow Rate FiO2 05/29/18 16:00 98.1 62 19 120/63 (82) 97 05/29/18 12:00 97.7 58 18 116/66 (83) 97 05/29/18 09:00 Room Air 05/29/18 08:00 98.0 60 20 116/58 (77) 96 05/29/18 04:00 97.2 55 18 106/62 (77) 97 05/29/18 00:00 97.6 60 18 127/78 (94) 98 Intake and Output 05/28/18 05/29/18 18:59 06:59 Intake Total 1000 ml Output Total 1300 ml 1800 ml Balance -300 ml -1800 ml Intake Oral 1000 ml Output Urine Total 1300 ml 1800 ml # Voids 4 # Bowel Movements 1 Height (Feet): 5 Height (Inches): 7.00 Weight (Pounds): 157 General Appearance: alert, mild distress Lawanda Kiser MD May 29, 2018 23:41
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
== END 2018-05-29 18:16 | disposition home or self-care (01) | DRG 71 ==
LOC: EDBD 16:47 → EMR 18:09 → EDBEDREQ 19:13 → 4E 19:34
PROC: 30233N1 Transfusion of Nonautologous Red Blood Cells into Peripheral Vein, Percutaneous Approach (ICD-10-PCS; principal; 2018-05-22)
DX: G93.40 Encephalopathy, unspecified (principal); L03.116 Cellulitis of left lower limb; L03.032 Cellulitis of left toe; B35.1 Tinea unguium; F10.229 Alcohol dependence with intoxication, unspecified; D64.9 Anemia, unspecified; D69.6 Thrombocytopenia, unspecified; S81.812A Laceration without foreign body, left lower leg, initial encounter; X58.XXXA Exposure to other specified factors, initial encounter; Y92.009 Unspecified place in unspecified non-institutional (private) residence as the place of occurrence of the external cause; Z91.81 History of falling
CPT/HCPCS: 36415; 70450; 80053; 80061; 80307; 80329; 82140; 82248; 85007; 85025; 85610; 85730; 86850; 86900; 86901; 86920; 87070; 87081; 87205; 96361; 96365; 96372; 99285; S0077

== ENCOUNTER 2020-03-02 15:43 | Inpatient (IN) | payer MEDICAID, MEDICARE ==
[~2020-03-02] VITALS: Ht 165.1 cm; Wt 65.8 kg
[~2020-03-02 15:43] MED LIST changes: +BACTRIM-DS1 EA ORAL
[2020-03-02] MEDS ORDERED: Tetanus/Diptheria/Pertussis IM ONE (16:15)
[2020-03-02] MEDS ORDERED: Vancomycin 1 GM in NS 275 ML IV ONE (16:15)
[2020-03-02] MEDS ORDERED: Piperacillin/Tazobactam 4.5 GM in NS 110 ML IV ONE (16:15)
--- NOTE | 2020-03-02 16:26 | Emergency Room Report ---
History of Present Illness General Chief Complaint: General Complaint Source: Patient Present Illness HPI Patient sent in for left leg pain from a half-way facility. The patient is a poor historian. He is not sure when the problem started in his left leg however it is worsened. There is an open ulcer on the leg and swelling. Review of old records suggest that he had a lesion there in May 2018. He is unable to discussed the course of the wound. He states his last tetanus was 3 years ago. He denies fevers or chills. He denies nausea, vomiting or diarrhea. He denies dysuria. The patient is coming from a half-way facility but denies cough or shortness of breath. He also denies chest pain. Patient complains about chronic back pain. He rates the pain 6/10. It is worse when he moves about. He has difficulty sitting. Patient admitted May 2018 with these discharge diagnoses: Acute encephalopathy Infected nail bed of toe Onychomycosis Alcohol abuse Acute alcohol intoxication Cellulitis left lower extremity Acute anemia Thrombocytopenia Trauma and laceration to the left lower extremity, followed by profuse bleeding-stable Allergies: Coded Allergies: No Known Allergies (Unverified , 11/23/17) COVID-19 Screening Contact w/high risk pt: No Experienced COVID-19 symptoms?: No COVID-19 Testing performed COMPRESSOR MECHANIC BUS: No Patient History Past Medical History: see triage record Social History: Reports: alcohol use; Denies: smoking Social History Narrative halfway facility Reviewed Nursing Documentation: PMH: Agreed; PSxH: Agreed Nursing Documentation-PMH Past Medical History: No History, Except For Hx Cardiac Problems: No Hx Cancer: No Hx Gastrointestinal Problems: No Hx Dementia: Yes Review of Systems All Other Systems: negative except mentioned in HPI - Patient has a history of dementia Physical Exam Vital Signs Date Time Temp Pulse Resp B/P (MAP) Pulse Ox O2 Delivery O2 Flow Rate FiO2 03/02/20 15:51 98.1 77 16 108/60 (76) 98 Room Air Sp02 EP Interpretation: reviewed, normal General Appearance: well appearing, no apparent distress, GCS 15 - However his tory of dementia Head: normocephalic Eyes: bilateral eye normal inspection, bilateral eye PERRL, bilateral eye EOMI ENT: moist mucus membranes Neck: supple Respiratory: lungs clear, normal breath sounds Cardiovascular #1: regular rate, rhythm, edema - Bilaterally worse on the left Cardiovascular #2: 2+ radial (R) Gastrointestinal: normal inspection, normal bowel sounds, non tender, no mass, non-distended Musculoskeletal: back normal, normal range of motion, inflammation - Left lower leg, calf tenderness - Left, tender Neurologic: alert, oriented - X2, DTRs symmetric - Decreased knees, grossly normal Psychiatric: mood/affect normal - Strange affect Skin: other - Erythema bilateral lower extremities worse on the left with large ulcer lateral lower fibula Medical Decision Making Diagnostic Impression: Primary Impression: Cellulitis of left leg Additional Impressions: Hypokalemia Leg ulcer, left Qualified Codes: L97.922 - Non-pressure chronic ulcer of unspecified part of left lower leg with fat layer exposed COVID-19 ruled out by laboratory testing ER Course Patient presents with left leg pain and ulcer. Differential includes cellulitis, DVT, venous ulcer, osteomyelitis amongst others. Evaluation with EKG, chest x-ray, left tib-fib and labs. Vital signs do not suggest sepsis however blood cultures and wound culture were ordered. IV hydration and antibiotics begun. EKG no injury. Chest x-ray no infiltrates. Left tib-fib with soft tissue defect no evidence of osteomyelitis although degenerative joint disease. White count slightly elevated. CMP unremarkable except for low potassium.. Wound Gram stain with gram-negative rods and white cells. Patient complaining about pain and treated. Potassium administered. Initial lactic acid normal. Patient needs IV antibiotics and surgical consultation for treatment of the wound. Laboratory Tests Test 03/02/20 16:12 03/02/20 17:00 White Blood Count 11.0 K/UL (4.8-10.8) H Red Blood Count 4.06 M/UL (4.70-6.10) L Hemoglobin 11.3 G/DL (14.2-18.0) L Hematocrit 35.2 % (42.0-52.0) L Mean Corpuscular Volume 87 FL (80-99) Mean Corpuscular Hemoglobin 27.9 PG (27.0-31.0) Mean Corpuscular Hemoglobin Concent 32.1 G/DL (32.0-36.0) Red Cell Distribution Width 15.8 % (11.6-14.8) H Platelet Count 96 K/UL (150-450) L Mean Platelet Volume 13.9 FL (6.5-10.1) H Neutrophils (%) (Auto) 61.2 % (45.0-75.0) Lymphocytes (%) (Auto) 22.7 % (20.0-45.0) Monocytes (%) (Auto) 14.3 % (1.0-10.0) H Eosinophils (%) (Auto) 0.7 % (0.0-3.0) Basophils (%) (Auto) 1.1 % (0.0-2.0) Prothrombin Time 12.0 SEC (9.30-11.50) H Prothrombin Time INR 1.1 (0.9-1.1) Activated Partial Thromboplast Time 37 SEC (23-33) H Sodium Level 138 MMOL/L (136-145) Potassium Level 3.0 MMOL/L (3.5-5.1) L Chloride Level 99 MMOL/L (98-107) Carbon Dioxide Level 29 MMOL/L (21-32) Blood Urea Nitrogen 11 mg/dL (7-18) Creatinine 0.9 MG/DL (0.55-1.30) Estimated Glomerular Filtration Rate > 60 mL/min (>60) Glucose Level 98 MG/DL (74-106) Lactic Acid Level 1.70 mmol/L (0.4-2.0) Calcium Level 8.5 MG/DL (8.5-10.1) Total Bilirubin 1.4 MG/DL (0.2-1.0) H Direct Bilirubin 0.5 MG/DL (0.0-0.3) H Aspartate Amino Transferase (AST) 22 U/L (15-37) Alanine Aminotransferase (ALT) 21 U/L (12-78) Alkaline Phosphatase 107 U/L (46-116) Total Creatine Kinase 94 U/L (26-308) Troponin I 0.003 ng/mL (0.000-0.056) Pro-B-Type Natriuretic Peptide 313 pg/mL (0-125) H Total Protein 8.4 G/DL (6.4-8.2) H Albumin 3.0 G/DL (3.4-5.0) L Globulin 5.4 g/dL Albumin/Globulin Ratio 0.6 (1.0-2.7) L Lipase 65 U/L (73-393) L Urine Color Yellow Urine Appearance Cloudy Urine pH 5 (4.5-8.0) Urine Specific [place] 1.020 (1.005-1.035) Urine Protein 1+ (NEGATIVE) H Urine Glucose (UA) Negative (NEGATIVE) Urine Ketones 1+ (NEGATIVE) H Urine Blood 3+ (NEGATIVE) H Urine Nitrite Negative (NEGATIVE) Urine Bilirubin 1+ (NEGATIVE) H Urine Ictotest Negative (NEGATIVE) Urine Urobilinogen 8 MG/DL (0.0-1.0) H Urine Leukocyte Esterase 1+ (NEGATIVE) H Urine RBC 0-2 /HPF (0 - 0) H Urine WBC 0-2 /HPF (0 - 0) Urine Squamous Epithelial Cells Few /LPF (NONE/OCC) Urine Amorphous Sediment Moderate /LPF (NONE) H Urine Bacteria Many /HPF (NONE) H Microbiology Date/Time Source Procedure Growth Status 03/02/20 16:16 Nasopharynx SARS-CoV-2 RdRp Gene Assay - Final Complete EKG Diagnostic Results Rate: normal Rhythm: NSR ST Segments: no acute changes Rhythm Strip Diag. Results EP Interpretation: yes Rhythm: NSR, no PVC's, no ectopy Chest X-Ray Diagnostic Results Chest X-Ray Diagnostic Results : Chest X-Ray Ordered: Yes # of Views/Limited/Complete: 1 View Indication: Other EP Interpretation: Yes Interpretation: no consolidation, no effusion, no pneumothorax, other - loops of bowel gas Impression: Other Electronically Signed by: Electronically signed by Kirby Kumar MD Other X-Ray Diagnostic Results Other X-Ray Diagnostic Results : X-Ray ordered: Left tib-fib # of Views/Limited Vs Complete: 4 View Indication: Other EP Interpretation: Yes Interpretation: no dislocation, no fractures, other - Degenerative changes and also skin changes but the area of the ulcer without gas Impression: Other Electronically Signed by: Electronically signed by Kirby Kumar MD Last Vital Signs Date Time Temp Pulse Resp B/P (MAP) Pulse Ox O2 Delivery O2 Flow Rate FiO2 03/03/20 04:00 97.8 65 16 97/58 (71) 97 03/02/20 22:33 Room Air 03/02/20 20:10 98 Status: improved Disposition: ADMITTED INPATIENT Condition: Serious Kirby Kumar MD Mar 02, 2020 16:26
[2020-03-02 16:30] VITALS: BP 112/65
[2020-03-02] MEDS ORDERED: oxyCODONE HCL/Acetaminophen 5/325mg ORAL ONE (16:30)
[2020-03-02 16:39] LABS: BASOPHILS % (AUTO) 1.1 % (0.0-2.0); EOSINOPHILS % (AUTO) 0.7 % (0.0-3.0); HEMATOCRIT 35.2 % (42.0-52.0); HEMOGLOBIN 11.3 G/DL (14.2-18.0); LYMPHOCYTES % (AUTO) 22.7 % (20.0-45.0); MEAN CORPUSCULAR VOLUME 87 FL (80-99); MONOCYTES % (AUTO) 14.3 % (1.0-10.0); NEUTROPHILS % (AUTO) 61.2 % (45.0-75.0); PLATELET COUNT 96 K/UL (150-450); RED BLOOD COUNT 4.06 M/UL (4.70-6.10); RED CELL DISTRIBUTION WIDTH 15.8 % (11.6-14.8)
[2020-03-02 16:57] LABS: INR 1.1 (0.9-1.1)
[2020-03-02 17:09] LABS: ALANINE AMINOTRANSFERASE 21 U/L (12-78); ALBUMIN/GLOBULIN RATIO 0.6 (1.0-2.7); ALKALINE PHOSPHATASE 107 U/L (46-116); ASPARTATE AMINO TRANSFERASE 22 U/L (15-37); BILIRUBIN,TOTAL 1.4 MG/DL (0.2-1.0); BLOOD UREA NITROGEN 11 mg/dL (7-18); CALCIUM 8.5 MG/DL (8.5-10.1); CARBON DIOXIDE 29 MMOL/L (21-32); CREATINE KINASE 94 U/L (26-308); CREATININE 0.9 MG/DL (0.55-1.30)
[2020-03-02 17:12] LABS: APPEARANCE,URINE CLOUDY; BILIRUBIN, URINE 1+ (NEGATIVE); GLUCOSE, URINE (UA) NEGATIVE (NEGATIVE); KETONES,URINE 1+ (NEGATIVE); LEUKOCYTE ESTERASE ,URINE 1+ (NEGATIVE); NITRITE,URINE NEGATIVE (NEGATIVE); PH,URINE 5 (4.5-8.0); PROTEIN,URINE 1+ (NEGATIVE); UROBILINOGEN,URINE 8 MG/DL (0.0-1.0)
[2020-03-02 17:14] LABS: COLOR,URINE YELLOW
--- NOTE | 2020-03-02 17:17 | Diagnostic Imaging Report ---
Indication: Left leg pain Technique: 2 views of the left tibia and fibula Comparison: 05/21/2018 Findings: There is what may be an old healed fracture deformity of the distal fibula again noted. No acute fractures. No dislocations. The bones are osteoporotic Impression: . No acute process Osteoporotic change
--- NOTE | 2020-03-02 17:18 | Diagnostic Imaging Report ---
Indication: Chest pain Technique: One view of the chest Comparison: none Findings: Suboptimal inspiration. There is some atelectasis in the right perihilar region. The lungs and pleural spaces are otherwise clear. The heart size is upper limits normal. Impression: No acute process
[2020-03-02 17:29] LABS: BILIRUBIN,DIRECT 0.5 MG/DL (0.0-0.3)
[2020-03-02 17:43] LABS: CHLORIDE 99 MMOL/L (98-107); SODIUM 138 MMOL/L (136-145)
--- NOTE | 2020-03-02 18:15 | NUR ---
ED Nurse Note: Pt BIBA from assisted living for wounds LLE. Pt has open wound and bilateral edema non pitting. Pt is alert and orientedx4, ambulatory. Pt is set up on monitor. Pt has been seen by ERMD. Pt is alert.
[2020-03-02 19:14] VITALS: BP 117/64
--- NOTE | 2020-03-02 19:17 | NUR ---
HAND-OFF: Report given to Deb MCKEON.
--- NOTE | 2020-03-02 19:17 | NUR ---
ED Nurse Note: pt resting in bed, VSS no ss of distress noted. will continue to monitor. Pt aao x 4, personal wheelchair at bedside
--- NOTE | 2020-03-02 20:10 | NUR ---
ER DISCHARGE NOTE: Patient is cleared to be discharged to [facility] unit per ERMD, pt is aox4, 99% on room air, with stable vital signs. pt was able to verbalize understanding. pt requires wheelchair; personal wheelchair at bedside. pt took all belongings. Pt transferred to [facility] unit with 1 LANDSCAPE PHOTOGRAPHER. Report given to MIKE Ferrara on MS unit.
--- NOTE | 2020-03-02 20:15 | NUR ---
NURSE NOTES: PATIENT WAS SAFELY TRANSFERRED TO ROOM 403-1 FROM ER VIA GURNEY. REPORT RECEIVED FROM MIKE MODI. BELONGING LIST REVIEWED AND SIGNED. PATIENT'S OWN WHEELCHAIR AT BEDSIDE. PATIENT IS AWAKE, AAOX4, ON ROOM AIR, NO ACUTE RESPIRATORY DISTRESS NOTED. PATIENT ADMITTED WITH LOWER LEFT LEG OPEN WOUND AND MULTIPLE PRESSURE RELATED WOUNDS. PICTURES TAKEN. REDNESS AND EDEMA NOTED ON BILATERAL LOWER EXTREMITIES. WARM TO TOUCH. PATIENT C/O 5/10 PAIN ON BILATERAL LOWER EXTREMITY AND BACK WHEN CHANGING POSITION. PIV ON LEFT AC INTACT AND PATENT. PATIENT IS A HIGH FALL RISK. REPORTED S/P FALL AT HOME 2 DAYS PRIOR TO ADMISSION. FALL PRECAUTION IMPLEMENTED. YELLOW SOCKS, YELLOW GOWN, YELLOW ARMBAND IN PLACE. DOOR SIGN PRESENT. COMMUNICATED WITH STAFF TO PERFORM FREQUENT ROUNDING. BED IS LOCKED AND LOW, BED ALARMS ACTIVE, SIDE RAILS UPX2 AND CALL LIGHT IS WITHIN REACH. REINFORCED TEACHING FIELD SECRETARY LIGHT USE FOR ASSISTANCE, PATIENT VERBALIZED UNDERSTANDING AND RETURN DEMONSTRATION. WILL CONTINUE TO MONITOR CLOSELY.
[2020-03-02] MEDS: Enoxaparin 40mg Inj SUBQ SCH (21:08)
--- NOTE | 2020-03-02 21:30 | NUR ---
NURSE NOTES: WOUND CULTURE TAKEN AND SENT DOWN TO LAB.
[2020-03-02] MEDS: Piperacillin/Tazobactam 3.375 GM in NS 110 ML IVPB SCH (21:51)
--- NOTE | 2020-03-02 22:00 | NUR ---
NURSE NOTES: APPLIED SKIN BARRIER FILM AND OPTIFOAM TO BONY PROMINENCES AND PRESSURE INJURY AREAS. PERFORMED WOUND DRESSINGS ON LEFT OPEN WOUND.
[2020-03-03] VITALS: BP 116/55
[2020-03-03 04:00] VITALS: BP 97/58
--- NOTE | 2020-03-03 04:14 | NUR ---
NURSE NOTES: PICTURES UPLOADED.
[2020-03-03] MEDS: Vancomycin 500 MG in NS 110 ML IVPB SCH ×2 (05:42→17:12)
[2020-03-03] MEDS: Piperacillin/Tazobactam 3.375 GM in NS 110 ML IVPB SCH ×3 (06:32→22:13)
--- NOTE | 2020-03-03 07:31 | NUR ---
NURSE HAND-OFF: Important Events on Shift: ADMISSION, NO ACUTE EVENTS, PATIENT STARTED ON VANCO 500MG, AND ZOSYN 3.375GM Patient Status: STABLE Diet: REGULAR Pending Orders: N/A Pending Results/Labs: BMP, HA1C Pending MD notification: N/A Latest Vital Signs: Temperature 97.8 , Pulse 65 , B/P 97 /58 , Respiratory Rate 16 , O2 SAT 97 , Room Air, O2 Flow Rate . Vital Sign Comment: STABLE Latest [place] Fall Score: 55 Fall Risk: High Risk Safety Measures: Call light Within Reach, Bed Alarm Zone 1, Side Rails Side Rails x2, Bed position Low and Locked. Fall Precautions: Yellow Socks Yellow Gown Door Sign Patient Fall Education Report given to MIKE SY.
--- NOTE | 2020-03-03 07:39 | NUR ---
NURSE NOTES: Received report from Alem, RN. Patient alert, awake, and oriented x4. Seen lying in bed, with HOB elevated, currently on room air, no s/sx of SOB/Distress, no c/o any pain or gi/gu discomfort. IV site located on LAC gauge 18, Asymptomatic, inplace and intact. Call light placed within reach and bed on lowest and locked position. Will continue to monitor for any changes in condition.
[2020-03-03 08:00] VITALS: BP 96/50
[2020-03-03 08:05] LABS: BLOOD UREA NITROGEN 4 mg/dL (7-18); CALCIUM 7.7 MG/DL (8.5-10.1); CARBON DIOXIDE 33 MMOL/L (21-32); CHLORIDE 107 MMOL/L (98-107); CREATININE 0.8 MG/DL (0.55-1.30); POTASSIUM 3.1 MMOL/L (3.5-5.1); SODIUM 141 MMOL/L (136-145)
[2020-03-03] MEDS: oxyCODONE HCL/Acetaminophen 5/325mg ORAL PRN ×2 (09:43→17:12)
--- NOTE | 2020-03-03 11:05 | History and Physical ---
History of Present Illness General Date patient seen: Mar 02, 2020 Reason for Hospitalization: leg ulcer Present Illness HPI Patient sent in for left leg pain from a [facility] facility. The patient is a poor historian. He is not sure when the problem started - possibly 3 month s ago in his left leg however it is worsened in pain over the last few days. There is an open ulcer on the leg and swelling. ( Review of old records suggest that he had a lesion there in May 2018 ) He is unable to discussed the course of the wound. He states his last tetanus was 3 years ago. He denies fevers or chills. He denies nausea, vomiting or diarrhea. He denies dysuria. The patient is coming from a [facility] facility but denies cough or shortness of breath. He also denies chest pain. Patient complains about chronic back pain. He rates the pain 6/10. It is worse when he moves about. He has difficulty sitting and reports having limited ambulation due to pain. He is mainly in a wheelchair. Allergies: Coded Allergies: No Known Allergies (Unverified , 11/23/17) COVID-19 Screening Contact w/high risk pt: No Experienced COVID-19 symptoms?: No Medication History Scheduled No Known Medications* (NKM - No Known Medications*), 0 ., (Reported) Trimethoprim/Sulfamethoxazole (Bactrim Ds Tablet), 1 TAB ORAL Q12HR Miscellaneous Medications Unable to Obtain Medications (Unable To Obtain Meds), (Reported) Patient History Healthcare decision maker Resuscitation status Advanced Directive on File Review of Systems Constitutional: Reports: see HPI All Other Systems: negative except mentioned in HPI ROS Narrative Reports having a left leg ulcer for a few months. Denies trauma, fever or chills. 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 Last 24 Hour Vital Signs Date Time Temp Pulse Resp B/P (MAP) Pulse Ox O2 Delivery O2 Flow Rate FiO2 03/03/20 08:00 98.1 67 17 96/50 (65) 95 03/03/20 04:00 97.8 65 16 97/58 (71) 97 03/03/20 00:00 98.1 71 18 116/55 (75) 97 03/02/20 22:33 Room Air 03/02/20 20:10 98.0 70 20 102/55 99 Room Air 98 03/02/20 19:14 98.0 89 17 117/64 99 Room Air 03/02/20 17:14 98.0 03/02/20 16:30 84 18 Room Air 98 03/02/20 16:30 98.1 84 18 112/65 98 Room Air 03/02/20 15:51 98.1 77 16 108/60 (76) 98 Room Air Intake and Output 03/02/20 03/03/20 19:00 07:00 Intake Total 0 ml 510.0 ml Output Total 450 ml Balance 0 ml 60.0 ml Intake Oral 0 ml IV Total 110.0 ml Other 400 ml Output Urine Total 450 ml # Voids 1 Laboratory Tests Test 03/02/20 16:12 03/02/20 17:00 03/03/20 07:30 White Blood Count 11.0 K/UL (4.8-10.8) H Red Blood Count 4.06 M/UL (4.70-6.10) L Hemoglobin 11.3 G/DL (14.2-18.0) L Hematocrit 35.2 % (42.0-52.0) L Mean Corpuscular Volume 87 FL (80-99) Mean Corpuscular Hemoglobin 27.9 PG (27.0-31.0) Mean Corpuscular Hemoglobin Concent 32.1 G/DL (32.0-36.0) Red Cell Distribution Width 15.8 % (11.6-14.8) H Platelet Count 96 K/UL (150-450) L Mean Platelet Volume 13.9 FL (6.5-10.1) H Neutrophils (%) (Auto) 61.2 % (45.0-75.0) Lymphocytes (%) (Auto) 22.7 % (20.0-45.0) Monocytes (%) (Auto) 14.3 % (1.0-10.0) H Eosinophils (%) (Auto) 0.7 % (0.0-3.0) Basophils (%) (Auto) 1.1 % (0.0-2.0) Prothrombin Time 12.0 SEC (9.30-11.50) H Prothromb Time International Ratio 1.1 (0.9-1.1) Activated Partial Thromboplast Time 37 SEC (23-33) H Sodium Level 138 MMOL/L (136-145) 141 MMOL/L (136-145) Potassium Level 3.0 MMOL/L (3.5-5.1) L 3.1 MMOL/L (3.5-5.1) L Chloride Level 99 MMOL/L (98-107) 107 MMOL/L (98-107) Carbon Dioxide Level 29 MMOL/L (21-32) 33 MMOL/L (21-32) H Blood Urea Nitrogen 11 mg/dL (7-18) 4 mg/dL (7-18) L Creatinine 0.9 MG/DL (0.55-1.30) 0.8 MG/DL (0.55-1.30) Estimat Glomerular Filtration Rate > 60 mL/min (>60) > 60 mL/min (>60) Glucose Level 98 MG/DL (74-106) 100 MG/DL (74-106) Lactic Acid Level 1.70 mmol/L (0.4-2.0) Calcium Level 8.5 MG/DL (8.5-10.1) 7.7 MG/DL (8.5-10.1) L Total Bilirubin 1.4 MG/DL (0.2-1.0) H Direct Bilirubin 0.5 MG/DL (0.0-0.3) H Aspartate Amino Transf (AST/SGOT) 22 U/L (15-37) Alanine Aminotransferase (ALT/SGPT) 21 U/L (12-78) Alkaline Phosphatase 107 U/L (46-116) Total Creatine Kinase 94 U/L (26-308) Troponin I 0.003 ng/mL (0.000-0.056) Pro-B-Type Natriuretic Peptide 313 pg/mL (0-125) H Total Protein 8.4 G/DL (6.4-8.2) H Albumin 3.0 G/DL (3.4-5.0) L Globulin 5.4 g/dL Albumin/Globulin Ratio 0.6 (1.0-2.7) L Lipase 65 U/L (73-393) L Urine Color Yellow Urine Appearance Cloudy Urine pH 5 (4.5-8.0) Urine Specific [place] 1.020 (1.005-1.035) Urine Protein 1+ (NEGATIVE) H Urine Glucose (UA) Negative (NEGATIVE) Urine Ketones 1+ (NEGATIVE) H Urine Blood 3+ (NEGATIVE) H Urine Nitrite Negative (NEGATIVE) Urine Bilirubin 1+ (NEGATIVE) H Urine Ictotest Negative (NEGATIVE) Urine Urobilinogen 8 MG/DL (0.0-1.0) H Urine Leukocyte Esterase 1+ (NEGATIVE) H Urine RBC 0-2 /HPF (0 - 0) H Urine WBC 0-2 /HPF (0 - 0) Urine Squamous Epithelial Cells Few /LPF (NONE/OCC) Urine Amorphous Sediment Moderate /LPF (NONE) H Urine Bacteria Many /HPF (NONE) H Hemoglobin A1c 5.3 % (4.3-6.0) Microbiology Date/Time Source Procedure Growth Status 03/02/20 17:00 Leg Left Gram Stain - Final Resulted 03/02/20 17:00 Leg Left Wound Culture - Preliminary NO GROWTH Resulted 03/02/20 17:00 Urine,Clean Catch Urine Culture - Preliminary NO GROWTH Resulted 03/02/20 16:16 Nasopharynx SARS-CoV-2 RdRp Gene Assay - Final Complete Height (Feet): 5 Height (Inches): 5.00 Weight (Pounds): 145 Medications Current Medications Medications (Trade) Dose Ordered Sig/Jenna Route PRN Reason Start Time Stop Time Status Last Admin Dose Admin Dextrose (Dextrose 50%) 25 ml Q30M PRN IV Hypoglycemia 03/02/20 20:30 05/31/20 20:29 Dextrose (Dextrose 50%) 50 ml Q30M PRN IV Hypoglycemia 03/02/20 20:30 05/31/20 20:29 Enoxaparin Sodium (Lovenox) 40 mg Q24H SUBQ 03/02/20 21:00 05/31/20 20:59 03/02/20 21:08 Oxycodone/ Acetaminophen (Percocet 5-325) 1 tab Q4H PRN ORAL Severe Pain (Pain Scale 7-10) 03/02/20 20:45 03/09/20 20:44 03/03/20 09:43 Piperacillin Sod/ Tazobactam Sod 3.375 gm/Sodium Chloride 110 ml @ 27.5 mls/hr EVERY 8 HOURS IVPB 03/02/20 22:00 03/07/20 21:59 03/03/20 06:32 Vancomycin HCl (Vanco pharmacy to dose) 1 ea DAILY PRN MISC Per rx protocol 03/02/20 20:30 04/01/20 20:29 Vancomycin HCl 500 mg/Sodium Chloride 110 ml @ 110 mls/hr Q12HR@0500,1700 IVPB 03/03/20 05:00 03/08/20 04:59 03/03/20 05:42 Assessment/Plan Status: not improved Status Narrative 74 y/o Male admitted to the Hospital with: # Left Leg wound / cellulitis IV antibiotic started. Vancomycin, Zosyn Wound culture ordered. Surgical consultation requested for management of the wound and future plan. Etiology appears to be venous stasis. Pain management # Hypokalemia Replete and monitor No EKG changes # Low back pain Etiology unknown. Consider X ray imaging PT evaluation for baseline. # Thrombocytopenia Monitor, no signs of acute bleeding # FULL CODE # DVT and GI ppx with LWH and PPI # Diet Regular Milton Hernandez MD Mar 03, 2020 11:05
--- NOTE | 2020-03-03 11:06 | General Progress Note ---
Subjective Date patient seen: Mar 03, 2020 Time patient seen: 11:00 ROS Limited/Unobtainable: Yes Allergies: Coded Allergies: No Known Allergies (Unverified , 11/23/17) All Systems: reviewed and negative except above Subjective Low back pain and Left leg wound pain. Objective Last 24 Hour Vital Signs Date Time Temp Pulse Resp B/P (MAP) Pulse Ox O2 Delivery O2 Flow Rate FiO2 03/03/20 08:00 98.1 67 17 96/50 (65) 95 03/03/20 04:00 97.8 65 16 97/58 (71) 97 03/03/20 00:00 98.1 71 18 116/55 (75) 97 03/02/20 22:33 Room Air 03/02/20 20:10 98.0 70 20 102/55 99 Room Air 98 03/02/20 19:14 98.0 89 17 117/64 99 Room Air 03/02/20 17:14 98.0 03/02/20 16:30 84 18 Room Air 98 03/02/20 16:30 98.1 84 18 112/65 98 Room Air 03/02/20 15:51 98.1 77 16 108/60 (76) 98 Room Air Intake and Output 03/02/20 03/03/20 19:00 07:00 Intake Total 0 ml 510.0 ml Output Total 450 ml Balance 0 ml 60.0 ml Intake Oral 0 ml IV Total 110.0 ml Other 400 ml Output Urine Total 450 ml # Voids 1 Laboratory Tests 03/02/20 16:12: White Blood Count 11.0H, Red Blood Count 4.06L, Hemoglobin 11.3L, Hematocrit 35.2L, Mean Corpuscular Volume 87, Mean Corpuscular Hemoglobin 27.9, Mean Corpuscular Hemoglobin Concent 32.1, Red Cell Distribution Width 15.8H, Platelet Count 96L, Mean Platelet Volume 13.9H, Neutrophils (%) (Auto) 61.2, Lymphocytes (%) (Auto) 22.7, Monocytes (%) (Auto) 14.3H, Eosinophils (%) (Auto) 0.7, Basophils (%) (Auto) 1.1, Prothrombin Time 12.0H, Prothromb Time International Ratio 1.1, Activated Partial Thromboplast Time 37H, Sodium Level 138, Potassium Level 3.0L, Chloride Level 99, Carbon Dioxide Level 29, Blood Urea Nitrogen 11, Creatinine 0.9, Estimat Glomerular Filtration Rate > 60, Glucose Level 98, Lactic Acid Level 1.70, Calcium Level 8.5, Total Bilirubin 1.4H, Direct Bilirubin 0.5H, Aspartate Amino Transf (AST/SGOT) 22, Alanine Aminotransferase (ALT/SGPT) 21, Alkaline Phosphatase 107, Total Creatine Kinase 94, Troponin I 0.003, Pro-B-Type Natriuretic Peptide 313H, Total Protein 8.4H, Albumin 3.0L, Globulin 5.4, Albumin/Globulin Ratio 0.6L, Lipase 65L 03/02/20 17:00: Urine Color Yellow, Urine Appearance Cloudy, Urine pH 5, Urine Specific [place] 1.020, Urine Protein 1+H, Urine Glucose (UA) Negative, Urine Ketones 1+H, Urine Blood 3+H, Urine Nitrite Negative, Urine Bilirubin 1+H, Urine Ictotest Negative, Urine Urobilinogen 8H, Urine Leukocyte Esterase 1+H, Urine RBC 0-2H, Urine WBC 0-2, Urine Squamous Epithelial Cells Few, Urine Amorphous Sediment ModerateH, Urine Bacteria ManyH 03/03/20 07:30: Sodium Level 141, Potassium Level 3.1L, Chloride Level 107, Carbon Dioxide Level 33H, Blood Urea Nitrogen 4L, Creatinine 0.8, Estimat Glomerular Filtration Rate > 60, Glucose Level 100, Calcium Level 7.7L, Hemoglobin A1c 5.3 Height (Feet): 5 Height (Inches): 5.00 Weight (Pounds): 145 General Appearance: WD/WN EENT: PERRL/EOMI Neck: non-tender Cardiovascular: normal rate Respiratory/Chest: lungs clear 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 Vancomycin, Zosyn Wound culture ordered. Noted to have GNR Surgical consultation requested for management of the wound and future plan. Etiology appears to be venous stasis per discussion with surgery. Continue antibiotics and wound care. Consider follow up wound clinic and possible wound graft in the future. Pain management # Hypokalemia Replete and monitor No EKG changes # Low back pain Etiology unknown. Consider X ray imaging PT evaluation for baseline. # Thrombocytopenia Monitor, no signs of acute bleeding # FULL CODE # DVT and GI ppx with LWH and PPI # Diet Regular Milton Hernandez MD Mar 03, 2020 11:06
--- NOTE | 2020-03-03 11:42 | Consultation ---
History of Present Illness General Date patient seen: Mar 03, 2020 Reason for Hospitalization: General Complaint Present Illness HPI 74 year old male sent to [facility] [place] [facility] for evaluation of left leg pain from a board and care facility. The patient is a poor historian and cannot recall any of his medical history. He is not sure when the pain and wound started in his left leg however states it is worsening over the past few weeks. He states it may have only began 3 weeks ago with an open ulcer on the left distal lateral leg and swelling with cellulitis. Review of old records suggest that he had a lesion there in May 2018. states care provided at facility but not sure what and how often. no n/v/f/c. labs noted. surgery called to evaluate. Allergies: Coded Allergies: No Known Allergies (Unverified , 11/23/17) COVID-19 Screening Contact w/high risk pt: No Experienced COVID-19 symptoms?: No Medication History Scheduled No Known Medications* (NKM - No Known Medications*), 0 ., (Reported) Trimethoprim/Sulfamethoxazole (Bactrim Ds Tablet), 1 TAB ORAL Q12HR Miscellaneous Medications Unable to Obtain Medications (Unable To Obtain Meds), (Reported) Patient History History Provided By: Patient, Medical Record, PMD Healthcare decision maker Resuscitation status Advanced Directive on File Past Medical/Surgical History Past Medical/Surgical History: (1) Acute alcoholic intoxication (2) Onychomycosis (3) Nail avulsion, toe (4) Infected nail bed of toe (5) Multiple falls (6) Infected alexander (7) COVID-19 ruled out by laboratory testing (8) Hypokalemia (9) Cellulitis of left leg (10) Leg ulcer, left Review of Systems Review of Symptoms General ROS: no weight loss or fever Psychological ROS: no depression or mood changes, no memory loss Ophthalmic ROS: no visual changes or eye irritation ENT ROS: no nasal congestion, hearing loss, dizziness Allergy and Immunology ROS: no allergic symptoms or urticaria Hematological and Lymphatic ROS: no swollen glands, unusual bleeding or bruising Endocrine ROS: no polyuria, polydipsia, weight changes, temperature intolerance Respiratory ROS: no cough, shortness of breath, or wheezing Cardiovascular ROS: no chest pain or dyspnea on exertion Gastrointestinal ROS: denies abdominal pain, bright red blood in stool. Musculoskeletal ROS: no myalgias or arthralgias Neurological ROS: no TIA or stroke symptoms Dermatological ROS: no new or changing skin lesions, rashes or pruritis Physical Exam Physical Exam General appearance: alert, cooperative, no distress, appears stated age Head: Normocephalic, without obvious abnormality, atraumatic Eyes: conjunctivae/corneas clear. PERRL, EOM's intact. Fundi benign Throat: Lips, mucosa, and tongue normal. Teeth and gums normal Neck: supple, symmetrical, trachea midline, no adenopathy, thyroid: not enlarged, symmetric, no tenderness/mass/nodules, no carotid bruit and no JVD Lungs: clear to auscultation bilaterally Heart: regular rate and rhythm, S1, S2 normal, no murmur, click, rub or gallop Abdomen: soft, non-tender. Bowel sounds normal. No masses, no organomegaly Extremities: extremities see below Pulses: 2+ and symmetric Skin: Skin color, texture, turgor normal. No rashes or lesions Neurologic: Grossly normal Last 24 Hour Vital Signs Date Time Temp Pulse Resp B/P (MAP) Pulse Ox O2 Delivery O2 Flow Rate FiO2 03/03/20 08:00 98.1 67 17 96/50 (65) 95 03/03/20 04:00 97.8 65 16 97/58 (71) 97 03/03/20 00:00 98.1 71 18 116/55 (75) 97 03/02/20 22:33 Room Air 03/02/20 20:10 98.0 70 20 102/55 99 Room Air 98 03/02/20 19:14 98.0 89 17 117/64 99 Room Air 03/02/20 17:14 98.0 03/02/20 16:30 84 18 Room Air 98 03/02/20 16:30 98.1 84 18 112/65 98 Room Air 03/02/20 15:51 98.1 77 16 108/60 (76) 98 Room Air Intake and Output 03/02/20 03/03/20 19:00 07:00 Intake Total 0 ml 510.0 ml Output Total 450 ml Balance 0 ml 60.0 ml Intake Oral 0 ml IV Total 110.0 ml Other 400 ml Output Urine Total 450 ml # Voids 1 Laboratory Tests Test 03/02/20 16:12 03/02/20 17:00 03/03/20 07:30 White Blood Count 11.0 K/UL (4.8-10.8) H Red Blood Count 4.06 M/UL (4.70-6.10) L Hemoglobin 11.3 G/DL (14.2-18.0) L Hematocrit 35.2 % (42.0-52.0) L Mean Corpuscular Volume 87 FL (80-99) Mean Corpuscular Hemoglobin 27.9 PG (27.0-31.0) Mean Corpuscular Hemoglobin Concent 32.1 G/DL (32.0-36.0) Red Cell Distribution Width 15.8 % (11.6-14.8) H Platelet Count 96 K/UL (150-450) L Mean Platelet Volume 13.9 FL (6.5-10.1) H Neutrophils (%) (Auto) 61.2 % (45.0-75.0) Lymphocytes (%) (Auto) 22.7 % (20.0-45.0) Monocytes (%) (Auto) 14.3 % (1.0-10.0) H Eosinophils (%) (Auto) 0.7 % (0.0-3.0) Basophils (%) (Auto) 1.1 % (0.0-2.0) Prothrombin Time 12.0 SEC (9.30-11.50) H Prothromb Time International Ratio 1.1 (0.9-1.1) Activated Partial Thromboplast Time 37 SEC (23-33) H Sodium Level 138 MMOL/L (136-145) 141 MMOL/L (136-145) Potassium Level 3.0 MMOL/L (3.5-5.1) L 3.1 MMOL/L (3.5-5.1) L Chloride Level 99 MMOL/L (98-107) 107 MMOL/L (98-107) Carbon Dioxide Level 29 MMOL/L (21-32) 33 MMOL/L (21-32) H Blood Urea Nitrogen 11 mg/dL (7-18) 4 mg/dL (7-18) L Creatinine 0.9 MG/DL (0.55-1.30) 0.8 MG/DL (0.55-1.30) Estimat Glomerular Filtration Rate > 60 mL/min (>60) > 60 mL/min (>60) Glucose Level 98 MG/DL (74-106) 100 MG/DL (74-106) Lactic Acid Level 1.70 mmol/L (0.4-2.0) Calcium Level 8.5 MG/DL (8.5-10.1) 7.7 MG/DL (8.5-10.1) L Total Bilirubin 1.4 MG/DL (0.2-1.0) H Direct Bilirubin 0.5 MG/DL (0.0-0.3) H Aspartate Amino Transf (AST/SGOT) 22 U/L (15-37) Alanine Aminotransferase (ALT/SGPT) 21 U/L (12-78) Alkaline Phosphatase 107 U/L (46-116) Total Creatine Kinase 94 U/L (26-308) Troponin I 0.003 ng/mL (0.000-0.056) Pro-B-Type Natriuretic Peptide 313 pg/mL (0-125) H Total Protein 8.4 G/DL (6.4-8.2) H Albumin 3.0 G/DL (3.4-5.0) L Globulin 5.4 g/dL Albumin/Globulin Ratio 0.6 (1.0-2.7) L Lipase 65 U/L (73-393) L Urine Color Yellow Urine Appearance Cloudy Urine pH 5 (4.5-8.0) Urine Specific [place] 1.020 (1.005-1.035) Urine Protein 1+ (NEGATIVE) H Urine Glucose (UA) Negative (NEGATIVE) Urine Ketones 1+ (NEGATIVE) H Urine Blood 3+ (NEGATIVE) H Urine Nitrite Negative (NEGATIVE) Urine Bilirubin 1+ (NEGATIVE) H Urine Ictotest Negative (NEGATIVE) Urine Urobilinogen 8 MG/DL (0.0-1.0) H Urine Leukocyte Esterase 1+ (NEGATIVE) H Urine RBC 0-2 /HPF (0 - 0) H Urine WBC 0-2 /HPF (0 - 0) Urine Squamous Epithelial Cells Few /LPF (NONE/OCC) Urine Amorphous Sediment Moderate /LPF (NONE) H Urine Bacteria Many /HPF (NONE) H Hemoglobin A1c 5.3 % (4.3-6.0) Microbiology Date/Time Source Procedure Growth Status 03/02/20 17:00 Leg Left Gram Stain - Final Resulted 03/02/20 17:00 Leg Left Wound Culture - Preliminary NO GROWTH Resulted 03/02/20 17:00 Urine,Clean Catch Urine Culture - Preliminary NO GROWTH Resulted 03/02/20 16:16 Nasopharynx SARS-CoV-2 RdRp Gene Assay - Final Complete Height (Feet): 5 Height (Inches): 5.00 Weight (Pounds): 145 Medications Current Medications Medications (Trade) Dose Ordered Sig/Jenna Route PRN Reason Start Time Stop Time Status Last Admin Dose Admin Dextrose (Dextrose 50%) 25 ml Q30M PRN IV Hypoglycemia 03/02/20 20:30 05/31/20 20:29 Dextrose (Dextrose 50%) 50 ml Q30M PRN IV Hypoglycemia 03/02/20 20:30 05/31/20 20:29 Enoxaparin Sodium (Lovenox) 40 mg Q24H SUBQ 03/02/20 21:00 05/31/20 20:59 03/02/20 21:08 Oxycodone/ Acetaminophen (Percocet 5-325) 1 tab Q4H PRN ORAL Severe Pain (Pain Scale 7-10) 03/02/20 20:45 03/09/20 20:44 03/03/20 09:43 Piperacillin Sod/ Tazobactam Sod 3.375 gm/Sodium Chloride 110 ml @ 27.5 mls/hr EVERY 8 HOURS IVPB 03/02/20 22:00 03/07/20 21:59 03/03/20 06:32 Vancomycin HCl ([facility] pharmacy to dose) 1 ea DAILY PRN MISC Per rx protocol 03/02/20 20:30 04/01/20 20:29 Vancomycin HCl 500 mg/Sodium Chloride 110 ml @ 110 mls/hr Q12HR@0500,1700 IVPB 03/03/20 05:00 03/08/20 04:59 03/03/20 05:42 Assessment/Plan Problem List: (1) COVID-19 ruled out by laboratory testing ICD Codes: Z03.818 - Encounter for observation for suspected exposure to other biological agents ruled out SNOMED: 373256315, 805680703 (2) Hypokalemia ICD Codes: E87.6 - Hypokalemia SNOMED: 97823931 (3) Cellulitis of left leg Assessment & Plan: 74M with cellulitis and open ulcer on left lateral distal leg seemingly venous stasis ulcer with acute infection. necrotic eschar falling off wound and underlying soft tissue exposed. no granulation tissue. unsure of prior care plan and patient unable to provide history. no abscess noted. -IV Abx -okay for diet -nutritional optimization -patient not able to tolerate local care given dry wound. therahoney applied and dressings to moisten eschar with plans for debridement once possible -discussed with patient and pcp -keep leg elevated while in bed will follow with recs and plan thank you ICD Codes: L03.116 - Cellulitis of left lower limb SNOMED: 029673836 (4) Leg ulcer, left Assessment & Plan: US ordered venous ICD Codes: L97.929 - Non-pressure chronic ulcer of unspecified part of left lower leg with unspecified severity SNOMED: 99135959 Qualifiers: Qualified Codes: L97.922 - Non-pressure chronic ulcer of unspecified part of left lower leg with fat layer exposed (5) Onychomycosis ICD Codes: B35.1 - Tinea unguium SNOMED: 140185204 (6) Acute alcoholic intoxication ICD Codes: F10.929 - Alcohol use, unspecified with intoxication, unspecified SNOMED: 66730157 (7) Infected alexander ICD Codes: L08.9 - Local infection of the skin and subcutaneous tissue, unspecified SNOMED: 13633717, 470979771 (8) Nail avulsion, toe ICD Codes: S91.209A - Unspecified open wound of unspecified toe(s) with damage to nail, initial encounter SNOMED: 963566035 (9) Multiple falls ICD Codes: R29.6 - Repeated falls SNOMED: 308544184 (10) Infected nail bed of toe ICD Codes: L03.039 - Cellulitis of unspecified toe SNOMED: 85869480, 376877279 Bryan Gonsales Mar 03, 2020 11:42
[2020-03-03 12:00] VITALS: BP 112/52
--- NOTE | 2020-03-03 14:11 | Diagnostic Imaging Report ---
EXAM: US Duplex Bilateral Lower Extremities Veins CLINICAL HISTORY: PAIN TECHNIQUE: Real-time duplex ultrasound scan of the bilateral lower extremity veins integrating B-mode two-dimensional vascular structure, Doppler spectral analysis, color flow Doppler imaging and compression. COMPARISON: No relevant prior studies available. FINDINGS: Right deep veins: Unremarkable. No DVT in the right common femoral, femoral, proximal deep femoral or popliteal veins. The veins demonstrate normal color flow, are normally compressible, with normal phasic flow and/or augmentation response. Right superficial veins: Unremarkable. No thrombus in the visualized right great saphenous vein. Left deep veins: Unremarkable. No DVT in the left common femoral, femoral, proximal deep femoral or popliteal veins. The veins demonstrate normal color flow, are normally compressible, with normal phasic flow and/or augmentation response. Left superficial veins: Unremarkable. No thrombus in the visualized left great saphenous vein. Soft tissues: No acute findings. No popliteal cyst. IMPRESSION: Normal bilateral lower extremity duplex venous ultrasound.
--- NOTE | 2020-03-03 14:18 | Diagnostic Imaging Report ---
EXAM: US Duplex Bilateral Lower Extremities Arteries CLINICAL HISTORY: PAIN TECHNIQUE: Real-time duplex ultrasound scan of the bilateral lower extremity arteries integrating B-mode two-dimensional vascular structure, Doppler spectral analysis and color flow Doppler imaging. COMPARISON: No relevant prior studies available. FINDINGS: Right common femoral artery: No acute findings. No occlusion or significant stenosis on color flow and spectral Doppler imaging. Normal waveform. Right superficial femoral artery: No acute findings. No occlusion or significant stenosis on color flow and spectral Doppler imaging. Normal waveform. Right popliteal artery: No acute findings. No occlusion or significant stenosis on color flow and spectral Doppler imaging. Normal waveform. Right calf/foot arteries: No flow in the right peroneal artery. Monophasic waveform of the right distal posterior tibialis artery and anterior tibialis artery. Indicate proximal stenosis. Left common femoral artery: No acute findings. No occlusion or significant stenosis on color flow and spectral Doppler imaging. Normal waveform. Left superficial femoral artery: No acute findings. No occlusion or significant stenosis on color flow and spectral Doppler imaging. Normal waveform. Left popliteal artery: No acute findings. No occlusion or significant stenosis on color flow and spectral Doppler imaging. Normal waveform. Left calf/foot arteries: Monophasic waveform of the left posterior tibialis artery, peroneal artery, dorsalis pedis artery, and anterior tibial arteries. Indicate proximal stenosis. Soft tissues: Unremarkable. IMPRESSION: 1. No flow in the right peroneal artery. 2. Monophasic waveform of the right distal posterior tibialis artery and anterior tibialis artery. Indicate proximal stenosis. 3. Monophasic waveform of the left posterior tibialis artery, peroneal artery, dorsalis pedis artery, and anterior tibial arteries. Indicate proximal stenosis. <MYCVCSECTION> Communications: 03/03/20 14:40 Verify Receipt with Nurse Verified receipt with 4E MIKE Agosto on 03/03 14:39 (-07:00)
[2020-03-03 16:00] VITALS: BP 138/70
--- NOTE | 2020-03-03 19:24 | NUR ---
NURSE HAND-OFF: Important Events on Shift:Venous and Arterial Duplex done, ATB Tx, Wound Care Patient Status: stable Diet: regular Pending Orders: n/a Pending Results/Labs:n/a Pending MD notification:n/a Latest Vital Signs: Temperature 97.9 , Pulse 83 , B/P 138 /70 , Respiratory Rate 19 , O2 SAT 95 , Room Air, O2 Flow Rate . Vital Sign Comment: stable Latest [place] Fall Score: 55 Fall Risk: High Risk Safety Measures: Call light Within Reach, Bed Alarm Zone 1, Side Rails Side Rails x2, Bed position Low and Locked. Fall Precautions: Yellow Socks Yellow Gown Door Sign Patient Fall Education Report given to MIKE Monroe
--- NOTE | 2020-03-03 19:27 | NUR ---
NURSE NOTES: Received report from Margarita RN.The Patient is alert and oriented x4, doesn't appear to be in any acute distress and is lying in bed with HOB elevated at semi cook. The patient is on room air with Resp even and unlabored. The is no s/sx of SOB/Distress at this time.He has an IV site located on Left AC gauge 18 which is intact and asymptomatic.On skin assessment, the is multiple open sores and a left lateral distal leg cellulitis covered with clean and intact dressing.All body prevalence coved with Optifoam as indicated.Call light placed within reach and bed on lowest and locked position. Will continue to monitor for any changes in condition
--- NOTE | 2020-03-03 19:59 | Cardiology Report ---
APPROVED REPORT EKG Measurement Heart [id number] <Conclusion> Atrial fibrillation Abnormal ECG
[2020-03-03 20:00] VITALS: BP 104/58
[2020-03-03] MEDS: Enoxaparin 40mg Inj SUBQ SCH (20:28)
[2020-03-04] VITALS: BP 111/61
[2020-03-04] MEDS: oxyCODONE HCL/Acetaminophen 5/325mg ORAL PRN ×4 (02:49→19:10)
[2020-03-04 04:00] VITALS: BP 116/60
--- NOTE | 2020-03-04 04:01 | NUR ---
NURSE NOTES: The patient is alert and stable and was able to sleep for about 6 hrs last night. The Resp is even and unlabored and the bilateral lung sounds are all clear on auscultation.She complained of pain and was given his PRN OxyContin well tolerated.Will continue to monitor
[2020-03-04] MEDS: Vancomycin 500 MG in NS 110 ML IVPB SCH (04:31)
[2020-03-04] MEDS: Piperacillin/Tazobactam 3.375 GM in NS 110 ML IVPB SCH ×3 (05:24→22:30)
[2020-03-04 06:33] LABS: HEMATOCRIT 29.6 % (42.0-52.0); HEMOGLOBIN 9.7 G/DL (14.2-18.0); MEAN CORPUSCULAR VOLUME 83 FL (80-99); PLATELET COUNT 86 K/UL (150-450); RED BLOOD COUNT 3.58 M/UL (4.70-6.10); WHITE BLOOD COUNT 6.6 K/UL (4.8-10.8)
[2020-03-04 07:20] LABS: ALANINE AMINOTRANSFERASE 14 U/L (12-78); ALBUMIN 2.3 G/DL (3.4-5.0); ALBUMIN/GLOBULIN RATIO 0.5 (1.0-2.7); ALKALINE PHOSPHATASE 81 U/L (46-116); ANION GAP 4 mmol/L (5-15); ASPARTATE AMINO TRANSFERASE 16 U/L (15-37); BILIRUBIN,TOTAL 0.9 MG/DL (0.2-1.0); BLOOD UREA NITROGEN 4 mg/dL (7-18); CALCIUM 7.9 MG/DL (8.5-10.1); CARBON DIOXIDE 28 MMOL/L (21-32); CHLORIDE 108 MMOL/L (98-107); CREATININE 0.8 MG/DL (0.55-1.30); PHOSPHORUS 2.9 MG/DL (2.5-4.9); POTASSIUM 3.7 MMOL/L (3.5-5.1); SODIUM 140 MMOL/L (136-145)
--- NOTE | 2020-03-04 07:20 | NUR ---
HAND-OFF: Report given to Margarita RN.
--- NOTE | 2020-03-04 07:43 | NUR ---
NURSE NOTES: Report received from MIKE Monroe. Patient observed to be lying in bed with HOB elevated and eating breakfast, on room air. No s/sx of SOB/Distress, no c/o any pain or discomfort. IV site located on LAC gauge 18 saline lock, asymptomatic, inplace and intact. Bed placed on lowest and locked, call light placed within reach and will continue to monitor,
--- NOTE | 2020-03-04 07:45 | NUR ---
Patient seen by Dr. Hernandez will continue with plan of care with Antibiotic tx.
[2020-03-04 08:00] VITALS: BP 122/65
--- NOTE | 2020-03-04 08:02 | General Progress Note ---
Subjective Date patient seen: Mar 04, 2020 Time patient seen: 07:50 ROS Limited/Unobtainable: No Allergies: Coded Allergies: No Known Allergies (Unverified , 11/23/17) Subjective Low back pain and Left leg wound pain. Objective Last 24 Hour Vital Signs Date Time Temp Pulse Resp B/P (MAP) Pulse Ox O2 Delivery O2 Flow Rate FiO2 03/04/20 04:00 96.8 60 18 116/60 (78) 99 03/04/20 00:00 97.7 71 18 111/61 (78) 97 03/03/20 21:00 Room Air 03/03/20 20:00 97.9 58 16 104/58 (73) 98 03/03/20 16:00 97.9 83 19 138/70 (92) 95 03/03/20 12:00 98.2 68 16 112/52 (72) 97 03/03/20 09:00 Room Air Intake and Output 03/03/20 03/04/20 19:00 07:00 Intake Total 960 ml 260 ml Output Total 300 ml Balance 960 ml -40 ml Intake Oral 960 ml Other 260 ml Output Urine Total 300 ml # Voids 5 Laboratory Tests 03/04/20 05:45: White Blood Count 6.6, Red Blood Count 3.58L, Hemoglobin 9.7L, Hematocrit 29.6L, Mean Corpuscular Volume 83, Mean Corpuscular Hemoglobin 27.2, Mean Corpuscular Hemoglobin Concent 32.9, Red Cell Distribution Width 15.0H, Platelet Count 86L, Mean Platelet Volume 9.2, Neutrophils (%) (Auto) , Lymphocytes (%) (Auto) , Monocytes (%) (Auto) , Eosinophils (%) (Auto) , Basophils (%) (Auto) , Neutrophils % (Manual) [Pending], Lymphocytes % (Manual) [Pending], Platelet Estimate [Pending], Platelet Morphology [Pending], Erythrocyte Sedimentation Rate [Pending], Sodium Level 140, Potassium Level 3.7, Chloride Level 108H, Carbon Dioxide Level 28, Anion Gap 4L, Blood Urea Nitrogen 4L, Creatinine 0.8, Estimat Glomerular Filtration Rate > 60, Glucose Level 93, Calcium Level 7.9L, Phosphorus Level 2.9, Magnesium Level 2.4, Total Bilirubin 0.9, Aspartate Amino Transf (AST/SGOT) 16, Alanine Aminotransferase (ALT/SGPT) 14, Alkaline Phosphatase 81, C-Reactive Protein, Quantitative 2.3H, Total Protein 6.8, Albumin 2.3L, Globulin 4.5, Albumin/Globulin Ratio 0.5L, Amylase Level 41, Lipase 63L Height (Feet): 5 Height (Inches): 5.00 Weight (Pounds): 145 General Appearance: WD/WN EENT: PERRL/EOMI Neck: non-tender Cardiovascular: normal rate Respiratory/Chest: lungs clear Abdomen: non tender Neurologic: tree chipper II-XII grossly normal Assessment/Plan Status: stable, not improved Status Narrative 74 y/o Male admitted to the Hospital with: # Left Leg wound / cellulitis IV antibiotic started. Vancomycin, Zosyn Wound culture ordered. Noted to have GNR and G + FINAL SENSITIVITIES PENDING. Surgical consultation appreciated for management of the wound and future plan. Etiology appears to be venous stasis per discussion with surgery. Continue antibiotics and wound care. Consider follow up wound clinic and possible wound graft in the future. Pain management. Add lidocaine patch. # Hypokalemia Repleted and monitor No EKG changes # Low back pain Etiology unknown. Pending X ray imaging PT evaluation for baseline. # Thrombocytopenia Monitor, no signs of acute bleeding # FULL CODE # DVT and GI ppx with LWH and PPI # Diet Regular # Disposition: Board and Care. Patient reports wanting to have a new ( prior facility in ) as the one where he is staying ( [address] ) if difficult due to being on a bunk bed and risk for falling. Will discuss with CM and Board and Care outside sales representative. Milton Hernandez MD Mar 04, 2020 08:02
[2020-03-04 12:00] VITALS: BP 112/61
--- NOTE | 2020-03-04 14:39 | Surgery Progress Note ---
Surgery Progress Note Subjective Additional Comments no acute events doing okay leg pain improved edema improved duplex noted Objective Last 24 Hour Vital Signs Date Time Temp Pulse Resp B/P (MAP) Pulse Ox O2 Delivery O2 Flow Rate FiO2 03/04/20 12:00 97.9 62 17 112/61 (78) 98 03/04/20 09:00 Room Air 03/04/20 08:00 97.9 61 19 122/65 (84) 97 03/04/20 04:00 96.8 60 18 116/60 (78) 99 03/04/20 00:00 97.7 71 18 111/61 (78) 97 03/03/20 21:00 Room Air 03/03/20 20:00 97.9 58 16 104/58 (73) 98 03/03/20 16:00 97.9 83 19 138/70 (92) 95 I&O Intake and Output 03/03/20 03/04/20 19:00 07:00 Intake Total 960 ml 260 ml Output Total 300 ml Balance 960 ml -40 ml Intake Oral 960 ml Other 260 ml Output Urine Total 300 ml # Voids 5 Dressing: saturated Cardiovascular: RSR Respiratory: clear Abdomen: soft, non-tender, present bowel sounds Extremities: edema, tenderness, no cyanosis Laboratory Tests Test 03/04/20 05:45 White Blood Count 6.6 K/UL (4.8-10.8) Red Blood Count 3.58 M/UL (4.70-6.10) L Hemoglobin 9.7 G/DL (14.2-18.0) L Hematocrit 29.6 % (42.0-52.0) L Mean Corpuscular Volume 83 FL (80-99) Mean Corpuscular Hemoglobin 27.2 PG (27.0-31.0) Mean Corpuscular Hemoglobin Concent 32.9 G/DL (32.0-36.0) Red Cell Distribution Width 15.0 % (11.6-14.8) H Platelet Count 86 K/UL (150-450) L Mean Platelet Volume 9.2 FL (6.5-10.1) Neutrophils (%) (Auto) % (45.0-75.0) Lymphocytes (%) (Auto) % (20.0-45.0) Monocytes (%) (Auto) % (1.0-10.0) Eosinophils (%) (Auto) % (0.0-3.0) Basophils (%) (Auto) % (0.0-2.0) Differential Total Cells Counted 100 Neutrophils % (Manual) 64 % (45-75) Lymphocytes % (Manual) 27 % (20-45) Monocytes % (Manual) 8 % (1-10) Eosinophils % (Manual) 1 % (0-3) Basophils % (Manual) 0 % (0-2) Band Neutrophils 0 % (0-8) Platelet Estimate Decreased L Platelet Morphology Normal Hypochromasia 1+ Anisocytosis 1+ Erythrocyte Sedimentation Rate 58 MM/HR (0-20) H Sodium Level 140 MMOL/L (136-145) Potassium Level 3.7 MMOL/L (3.5-5.1) Chloride Level 108 MMOL/L (98-107) H Carbon Dioxide Level 28 MMOL/L (21-32) Anion Gap 4 mmol/L (5-15) L Blood Urea Nitrogen 4 mg/dL (7-18) L Creatinine 0.8 MG/DL (0.55-1.30) Estimat Glomerular Filtration Rate > 60 mL/min (>60) Glucose Level 93 MG/DL (74-106) Calcium Level 7.9 MG/DL (8.5-10.1) L Phosphorus Level 2.9 MG/DL (2.5-4.9) Magnesium Level 2.4 MG/DL (1.8-2.4) Total Bilirubin 0.9 MG/DL (0.2-1.0) Aspartate Amino Transf (AST/SGOT) 16 U/L (15-37) Alanine Aminotransferase (ALT/SGPT) 14 U/L (12-78) Alkaline Phosphatase 81 U/L (46-116) C-Reactive Protein, Quantitative 2.3 mg/dL (0.00-0.90) H Total Protein 6.8 G/DL (6.4-8.2) Albumin 2.3 G/DL (3.4-5.0) L Globulin 4.5 g/dL Albumin/Globulin Ratio 0.5 (1.0-2.7) L Amylase Level 41 U/L (25-115) Lipase 63 U/L (73-393) L Plan Problems: (1) COVID-19 ruled out by laboratory testing (2) Hypokalemia (3) Cellulitis of left leg Assessment & Plan: 74M with cellulitis and open ulcer on left lateral distal leg seemingly venous stasis ulcer with acute infection. necrotic eschar falling off wound and underlying soft tissue exposed. no granulation tissue. unsure of prior care plan and patient unable to provide history. no abscess noted. -IV Abx -okay for diet -nutritional optimization -patient not able to tolerate local care given dry wound. therahoney applied and dressings to moisten eschar with plans for debridement once possible -discussed with patient and pcp -keep leg elevated while in bed will follow with recs and plan thank you (4) Leg ulcer, left Assessment & Plan: US ordered venous FINDINGS: Right common femoral artery: No acute findings. No occlusion or significant stenosis on color flow and spectral Doppler imaging. Normal waveform. Right superficial femoral artery: No acute findings. No occlusion or significant stenosis on color flow and spectral Doppler imaging. Normal waveform. Right popliteal artery: No acute findings. No occlusion or significant stenosis on color flow and spectral Doppler imaging. Normal waveform. Right calf/foot arteries: No flow in the right peroneal artery. Monophasic waveform of the right distal posterior tibialis artery and anterior tibialis artery. Indicate proximal stenosis. Left common femoral artery: No acute findings. No occlusion or significant stenosis on color flow and spectral Doppler imaging. Normal waveform. Left superficial femoral artery: No acute findings. No occlusion or significant stenosis on color flow and spectral Doppler imaging. Normal waveform. Left popliteal artery: No acute findings. No occlusion or significant stenosis on color flow and spectral Doppler imaging. Normal waveform. Left calf/foot arteries: Monophasic waveform of the left posterior tibialis artery, peroneal artery, dorsalis pedis artery, and anterior tibial arteries. Indicate proximal stenosis. Soft tissues: Unremarkable. IMPRESSION: 1. No flow in the right peroneal artery. 2. Monophasic waveform of the right distal posterior tibialis artery and anterior tibialis artery. Indicate proximal stenosis. 3. Monophasic waveform of the left posterior tibialis artery, peroneal artery, dorsalis pedis artery, and anterior tibial arteries. Indicate proximal stenosis. (5) Onychomycosis (6) Acute alcoholic intoxication (7) Infected alexander (8) Nail avulsion, toe (9) Multiple falls (10) Infected nail bed of toe Bryan Gonsales Mar 04, 2020 14:39
[2020-03-04 16:00] VITALS: BP 121/71
--- NOTE | 2020-03-04 16:47 | NUR ---
PT Note PT david completed, treatment initiated. Patient has LE muscle weakness with c/o LBP, limiting his mobility, unable to sit, stand or ambulate. Patient can benefit from PT services to increase his muscle strength, decrease pain to improve his functional mobility and possibly gait. Addendum: 03/04/20 at 1649 by PATI OWEN PT Amended: Links added.
[2020-03-04] MEDS: Vancomycin 750mg/D5W 275ml IVPB SCH ×2 (17:02)
--- NOTE | 2020-03-04 17:45 | Diagnostic Imaging Report ---
EXAM: XR Lumbosacral Spine, 2 or 3 Views CLINICAL HISTORY: PAIN TECHNIQUE: Frontal and lateral views of the lumbar spine and sacrum. COMPARISON: No relevant prior studies available. FINDINGS: Vertebrae: Age indeterminate wedge compression fracture at T12 and mild height loss at T11 and L1. Mild levocurvature. No spondylolisthesis. Mild to moderate degenerative spondylosis. Sacrum/coccyx: Unremarkable as visualized. No acute fracture. Disc spaces: No acute findings. No significant narrowing. Soft tissues: Unremarkable. IMPRESSION: Age indeterminate wedge compression fracture at T12 and mild height loss at T11 and L1. Correlate for point tenderness.
--- NOTE | 2020-03-04 19:42 | NUR ---
NURSE HAND-OFF: Important Events on Shift:atb tx, wound care, pain management Patient Status: stable Diet: regular Pending Orders: n/a Pending Results/Labs:n/a Pending MD notification:n/a Latest Vital Signs: Temperature 98.3 , Pulse 79 , B/P 121 /71 , Respiratory Rate 17 , O2 SAT 95 , Room Air, O2 Flow Rate . Vital Sign Comment: stable Latest Alcala Fall Score: 55 Fall Risk: High Risk Safety Measures: Call light Within Reach, Bed Alarm Zone 1, Side Rails Side Rails x2, Bed position Low and Locked. Fall Precautions: Yellow Socks Yellow Gown Door Sign Patient Fall Education Report given to MIKE Monroe.
--- NOTE | 2020-03-04 19:44 | NUR ---
NURSE NOTES: Received report from Margarita RN.The Patient is alert and oriented x4, stable and cooperative with his care.He is on room air with Resp even and unlabored. The is no s/sx of SOB/Distress at this time.He has an IV site located on Left AC gauge 18 which is intact and asymptomatic.On skin assessment, the is multiple open sores and a left lateral distal leg cellulitis covered with clean and intact dressing.All body prevalence coved with Optifoam as indicated.Call light placed within reach and bed on lowest and locked position. Will continue to monitor for any changes in condition
[2020-03-04 20:00] VITALS: BP 118/69
[2020-03-04] MEDS: Enoxaparin 40mg Inj SUBQ SCH (20:49)
[2020-03-05] VITALS: BP 117/62
[2020-03-05] MEDS: Vancomycin 750mg/D5W 275ml IVPB SCH ×2 (03:46)
[2020-03-05 04:00] VITALS: BP 111/67
[2020-03-05] MEDS: oxyCODONE HCL/Acetaminophen 5/325mg ORAL PRN ×3 (04:00→20:06)
--- NOTE | 2020-03-05 05:03 | NUR ---
NURSE NOTES: The patient is alert and stable and does not appear to be in any distress at this time. He complained of having back pain earlier and was given PRN Percocet as indicated and it was well tolerated. Will continue to monitor
[2020-03-05] MEDS: Piperacillin/Tazobactam 3.375 GM in NS 110 ML IVPB SCH (05:31)
[2020-03-05 06:28] LABS: HEMATOCRIT 29.7 % (42.0-52.0); HEMOGLOBIN 9.9 G/DL (14.2-18.0); MEAN CORPUSCULAR VOLUME 82 FL (80-99); PLATELET COUNT 91 K/UL (150-450); RED BLOOD COUNT 3.62 M/UL (4.70-6.10); RED CELL DISTRIBUTION WIDTH 14.8 % (11.6-14.8); WHITE BLOOD COUNT 7.1 K/UL (4.8-10.8)
[2020-03-05 06:36] LABS: ANION GAP 8 mmol/L (5-15); BLOOD UREA NITROGEN 2 mg/dL (7-18); CALCIUM 8.2 MG/DL (8.5-10.1); CARBON DIOXIDE 26 MMOL/L (21-32); CHLORIDE 106 MMOL/L (98-107); CREATININE 0.8 MG/DL (0.55-1.30); POTASSIUM 3.4 MMOL/L (3.5-5.1); SODIUM 140 MMOL/L (136-145)
--- NOTE | 2020-03-05 07:22 | NUR ---
HAND-OFF: Report given to Rafael MCKEON.
--- NOTE | 2020-03-05 07:47 | NUR ---
NURSE NOTES: Receives AM report. pt is in the bed awake, alert and verbally responsive. pt is eating his breakfast. denies any pain and discomfort, dressing on left leg cellulitis inplace, noted with slight colorless drainage and no odor, will do dressing change after pt eats breakfast. LAC IV site is intact and patent. place call light within reach, will follow plan of care.
[2020-03-05 08:00] VITALS: BP 120/61
[2020-03-05 12:00] VITALS: BP 113/65
--- NOTE | 2020-03-05 13:07 | General Progress Note ---
Subjective Date patient seen: Mar 05, 2020 Time patient seen: 12:00 ROS Limited/Unobtainable: No Allergies: Coded Allergies: No Known Allergies (Unverified , 11/23/17) All Systems: reviewed and negative except above Subjective Low back pain and Left leg wound pain. Objective Last 24 Hour Vital Signs Date Time Temp Pulse Resp B/P (MAP) Pulse Ox O2 Delivery O2 Flow Rate FiO2 03/05/20 09:00 Room Air 03/05/20 08:00 97.3 63 20 120/61 (80) 96 03/05/20 04:00 97.4 61 18 111/67 (82) 97 03/05/20 00:00 97.3 96 20 117/62 (80) 96 03/04/20 21:00 Room Air 03/04/20 20:00 97.5 63 18 118/69 (85) 97 03/04/20 16:00 98.3 79 17 121/71 (88) 95 Intake and Output 03/04/20 03/05/20 19:00 07:00 Intake Total 960 ml Output Total 1900 ml Balance -940 ml Other 960 ml Output Urine Total 1900 ml Laboratory Tests 03/04/20 15:45: Vancomycin Level Trough 7.1 03/05/20 05:35: White Blood Count 7.1, Red Blood Count 3.62L, Hemoglobin 9.9L, Hematocrit 29.7L, Mean Corpuscular Volume 82, Mean Corpuscular Hemoglobin 27.4, Mean Corpuscular Hemoglobin Concent 33.5, Red Cell Distribution Width 14.8, Platelet Count 91L, Mean Platelet Volume 8.7, Neutrophils (%) (Auto) , Lymphocytes (%) (Auto) , Monocytes (%) (Auto) , Eosinophils (%) (Auto) , Basophils (%) (Auto) , Differential Total Cells Counted 100, Neutrophils % (Manual) 53, Lymphocytes % (Manual) 31, Monocytes % (Manual) 14H, Eosinophils % (Manual) 0, Basophils % (Manual) 2, Band Neutrophils 0, Nucleated Red Blood Cells 1, Platelet Estimate DecreasedL, Platelet Morphology Normal, Hypochromasia 1+, Anisocytosis 1+, Sodium Level 140, Potassium Level 3.4L, Chloride Level 106, Carbon Dioxide Level 26, Anion Gap 8, Blood Urea Nitrogen 2L, Creatinine 0.8, Estimat Glomerular Filtration Rate > 60, Glucose Level 125H, Calcium Level 8.2L Height (Feet): 5 Height (Inches): 5.00 Weight (Pounds): 145 General Appearance: WD/WN EENT: PERRL/EOMI Neck: non-tender Cardiovascular: normal rate Respiratory/Chest: lungs clear Abdomen: non tender 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 Vancomycin, Zosyn will be stopped now based on sensitivities. Wound culture ordered. Noted to have Pseudomonas and Staph Aureus + FINAL SENSITIVITIES to Levofloxacin which will be started today, IV and switch to PO when ready for discharge. Surgical consultation appreciated for management of the wound and future plan. Etiology appears to be venous stasis per discussion with surgery. Continue antibiotics and wound care. Consider follow up wound clinic and possible wound graft in the future. PENDING DEBRIDMENT AND FINAL CLEARANCE BY SURGERY. Pain management. Add lidocaine patch. # Hypokalemia Repleted and monitor No EKG changes # Low back pain Etiology unknown. Pending X ray imaging PT evaluation for baseline. # Thrombocytopenia Monitor, no signs of acute bleeding # FULL CODE # DVT and GI ppx with LWH and PPI # Diet Regular # Disposition: Board and Care. Patient reports wanting to have a new ( prior facility in ) as the one where he is staying ( ) if difficult due to being on a bunk bed and risk for falling. Will discuss with CM and Board and Care outside dealer sales representative. Milton Hernandez MD Mar 05, 2020 13:07
--- NOTE | 2020-03-05 13:15 | Surgery Progress Note ---
Surgery Progress Note Subjective Additional Comments cellulitis improved with patients consent bedside debridement done and wound now without slough or necrotic tissue. back bleeding noted and clean Objective Last 24 Hour Vital Signs Date Time Temp Pulse Resp B/P (MAP) Pulse Ox O2 Delivery O2 Flow Rate FiO2 03/05/20 09:00 Room Air 03/05/20 08:00 97.3 63 20 120/61 (80) 96 03/05/20 04:00 97.4 61 18 111/67 (82) 97 03/05/20 00:00 97.3 96 20 117/62 (80) 96 03/04/20 21:00 Room Air 03/04/20 20:00 97.5 63 18 118/69 (85) 97 03/04/20 16:00 98.3 79 17 121/71 (88) 95 I&O Intake and Output 03/04/20 03/05/20 19:00 07:00 Intake Total 960 ml Output Total 1900 ml Balance -940 ml Other 960 ml Output Urine Total 1900 ml Cardiovascular: RSR Respiratory: clear Abdomen: soft, non-tender, present bowel sounds Extremities: edema, tenderness, no cyanosis, pulses - dec, other Laboratory Tests Test 03/04/20 15:45 03/05/20 05:35 Vancomycin Level Trough 7.1 ug/mL (5.0-12.0) White Blood Count 7.1 K/UL (4.8-10.8) Red Blood Count 3.62 M/UL (4.70-6.10) L Hemoglobin 9.9 G/DL (14.2-18.0) L Hematocrit 29.7 % (42.0-52.0) L Mean Corpuscular Volume 82 FL (80-99) Mean Corpuscular Hemoglobin 27.4 PG (27.0-31.0) Mean Corpuscular Hemoglobin Concent 33.5 G/DL (32.0-36.0) Red Cell Distribution Width 14.8 % (11.6-14.8) Platelet Count 91 K/UL (150-450) L Mean Platelet Volume 8.7 FL (6.5-10.1) Neutrophils (%) (Auto) % (45.0-75.0) Lymphocytes (%) (Auto) % (20.0-45.0) Monocytes (%) (Auto) % (1.0-10.0) Eosinophils (%) (Auto) % (0.0-3.0) Basophils (%) (Auto) % (0.0-2.0) Differential Total Cells Counted 100 Neutrophils % (Manual) 53 % (45-75) Lymphocytes % (Manual) 31 % (20-45) Monocytes % (Manual) 14 % (1-10) H Eosinophils % (Manual) 0 % (0-3) Basophils % (Manual) 2 % (0-2) Band Neutrophils 0 % (0-8) Nucleated Red Blood Cells 1 /100 WBC Platelet Estimate Decreased L Platelet Morphology Normal Hypochromasia 1+ Anisocytosis 1+ Sodium Level 140 MMOL/L (136-145) Potassium Level 3.4 MMOL/L (3.5-5.1) L Chloride Level 106 MMOL/L (98-107) Carbon Dioxide Level 26 MMOL/L (21-32) Anion Gap 8 mmol/L (5-15) Blood Urea Nitrogen 2 mg/dL (7-18) L Creatinine 0.8 MG/DL (0.55-1.30) Estimat Glomerular Filtration Rate > 60 mL/min (>60) Glucose Level 125 MG/DL (74-106) H Calcium Level 8.2 MG/DL (8.5-10.1) L Plan Problems: (1) COVID-19 ruled out by laboratory testing (2) Hypokalemia (3) Cellulitis of left leg Assessment & Plan: 74M with cellulitis and open ulcer on left lateral distal leg seemingly venous stasis ulcer with acute infection. necrotic eschar falling off wound and underlying soft tissue exposed. no granulation tissue. unsure of prior care plan and patient unable to provide history. no abscess noted. -IV Abx -okay for diet -nutritional optimization -patient not able to tolerate local care given dry wound. therahoney applied and dressings to moisten eschar with plans for debridement once possible -discussed with patient and pcp -keep leg elevated while in bed will follow with recs and plan thank you bedside debridement of non viable tissue done. wound 100% viable tissue now. needs granulation tissue then graft in a few weeks needs vascular eval outpatient (4) Leg ulcer, left Assessment & Plan: US ordered venous FINDINGS: Right common femoral artery: No acute findings. No occlusion or significant stenosis on color flow and spectral Doppler imaging. Normal waveform. Right superficial femoral artery: No acute findings. No occlusion or significant stenosis on color flow and spectral Doppler imaging. Normal waveform. Right popliteal artery: No acute findings. No occlusion or significant stenosis on color flow and spectral Doppler imaging. Normal waveform. Right calf/foot arteries: No flow in the right peroneal artery. Monophasic waveform of the right distal posterior tibialis artery and anterior tibialis artery. Indicate proximal stenosis. Left common femoral artery: No acute findings. No occlusion or significant stenosis on color flow and spectral Doppler imaging. Normal waveform. Left superficial femoral artery: No acute findings. No occlusion or significant stenosis on color flow and spectral Doppler imaging. Normal waveform. Left popliteal artery: No acute findings. No occlusion or significant stenosis on color flow and spectral Doppler imaging. Normal waveform. Left calf/foot arteries: Monophasic waveform of the left posterior tibialis artery, peroneal artery, dorsalis pedis artery, and anterior tibial arteries. Indicate proximal stenosis. Soft tissues: Unremarkable. IMPRESSION: 1. No flow in the right peroneal artery. 2. Monophasic waveform of the right distal posterior tibialis artery and anterior tibialis artery. Indicate proximal stenosis. 3. Monophasic waveform of the left posterior tibialis artery, peroneal artery, dorsalis pedis artery, and anterior tibial arteries. Indicate proximal stenosis. (5) Onychomycosis (6) Acute alcoholic intoxication (7) Infected alexander (8) Nail avulsion, toe (9) Multiple falls (10) Infected nail bed of toe Bryan Gonsales Mar 05, 2020 13:15
--- NOTE | 2020-03-05 13:20 | NUR ---
NURSE NOTES: DR. Hernandez saw pt, and gave verbal order to administer KCL 20meq x1 for potassium level 3.4, order noted and carried out.
[2020-03-05 16:00] VITALS: BP 122/67
--- NOTE | 2020-03-05 16:11 | NUR ---
CASE MANAGEMENT:INITIAL REVIEW 03/03/20 5 YR OLD MALE WALKED IN TO ER FROM [facility];GENERAL COMPLAINT SI;CELLULITIS 98.1 84 18 108/60 98% ON RA WBC 11.0 PLT 96 K+ 3.0 T-BILI 1.4 D-BILI 0.5 ALB 3.0 PT 12.0 APTT 37 UA+ PROTEIN, KETONES, BLOOD, BILIRUBIN, UROBILINOGEN, RBC, AMORPHOUS SEDIMENT, BACTERIA COVID RAPID ~ NEGATIVE CXR ~ NO ACUTE PROCESS LT TIB/FIB XRAY ~ NO ACUTE PROCESS. OSTEOPOROTIC CHANGE. IS;VANCOMYCIN IV ZOSYN IV INF NS BOLUS TDAP IM PERCOCET PO K-DUR PO ADMITTED TO MED SURG MED SURG STATUS DCP;[facility] CASE MANAGEMENT:REVIEW 03/05/20 SI;LLE CELLULITIS 98.1 96 20 120/61 96% ON RA H/H 9.9/29.7 PLT 91 K+ 3.4 BG 125 CA 8.2 IS;LEVAQUIN IV Q24 K-DUR PO ONCE VANCOMYCIN IV Q12 ZOSYN IV Q8 PERCOCET PO Q4 PRN LOVENOX SUBQ QD MED SURG STATUS DCP;FROM [facility] PL[facility]; SNF PLACEMENT
--- NOTE | 2020-03-05 16:24 | NUR ---
DISCHARGE PLANNING PATIENT HAS BEEN REFERRED [facility] [address] P: [phone] F: [phone]
--- NOTE | 2020-03-05 19:18 | NUR ---
HAND-OFF: Report given to WANG.
[2020-03-05 20:00] VITALS: BP 137/63
[2020-03-05] MEDS: Enoxaparin 40mg Inj SUBQ SCH (20:13)
[2020-03-06] VITALS: BP 134/65
--- NOTE | 2020-03-06 02:28 | NUR ---
NURSE NOTES: RECEIVED PATIENT FROM MIKE WORKMAN. PATIENT IS AWAKE, AAOX4, ON ROOM AIR, NO ACUTE RESPIRATORY DISTRESS NOTED. REDNESS AND EDEMA NOTED ON BILATERAL LOWER EXTREMITIES. WARM TO TOUCH. WOUND DRESSINGS ON LEFT LEG INTACT AND DRY. PIV ON LEFT AC INTACT AND PATENT. PATIENT IS A HIGH FALL RISK. FALL PRECAUTION IMPLEMENTED. YELLOW SOCKS, YELLOW GOWN, YELLOW ARMBAND IN PLACE. DOOR SIGN PRESENT. COMMUNICATED WITH STAFF TO PERFORM FREQUENT ROUNDING. BED IS LOCKED AND LOW, BED ALARMS ACTIVE, SIDE RAILS UPX2 AND CALL LIGHT IS WITHIN REACH. 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 WILL CONTINUE TO MONITOR CLOSELY.
[2020-03-06 04:00] VITALS: BP 116/70
[2020-03-06] MEDS: oxyCODONE HCL/Acetaminophen 5/325mg ORAL PRN ×2 (06:00→14:32)
[2020-03-06 06:44] LABS: BASOPHILS % (AUTO) 1.7 % (0.0-2.0); EOSINOPHILS % (AUTO) 1.3 % (0.0-3.0); HEMATOCRIT 33.4 % (42.0-52.0); HEMOGLOBIN 11.1 G/DL (14.2-18.0); LYMPHOCYTES % (AUTO) 28.6 % (20.0-45.0); MEAN CORPUSCULAR VOLUME 82 FL (80-99); MONOCYTES % (AUTO) 9.7 % (1.0-10.0); NEUTROPHILS % (AUTO) 58.7 % (45.0-75.0); PLATELET COUNT 112 K/UL (150-450); RED BLOOD COUNT 4.05 M/UL (4.70-6.10); WHITE BLOOD COUNT 9.6 K/UL (4.8-10.8)
[2020-03-06 06:46] LABS: ANION GAP 7 mmol/L (5-15); BLOOD UREA NITROGEN 3 mg/dL (7-18); CALCIUM 8.4 MG/DL (8.5-10.1); CARBON DIOXIDE 27 MMOL/L (21-32); CHLORIDE 105 MMOL/L (98-107); CREATININE 0.9 MG/DL (0.55-1.30); POTASSIUM 3.9 MMOL/L (3.5-5.1); SODIUM 139 MMOL/L (136-145)
--- NOTE | 2020-03-06 07:20 | NUR ---
NURSE HAND-OFF: Important Events on Shift: PAIN MANAGEMENT Patient Status: STABLE Diet: REGULAR Pending Orders: N/A Pending Results/Labs: N/A Pending MD notification: N/A Latest Vital Signs: Temperature 97.7 , Pulse 63 , B/P 116 /70 , Respiratory Rate 17 , O2 SAT 97 , Room Air, O2 Flow Rate . Vital Sign Comment: STABLE Latest Alcala Fall Score: 55 Fall Risk: High Risk Safety Measures: Call light Within Reach, Bed Alarm Zone 1, Side Rails Side Rails x2, Bed position Low and Locked. Fall Precautions: Yellow Socks Yellow Gown Door Sign Patient Fall Education Report given to MIKE SZYMANSKI.
--- NOTE | 2020-03-06 07:46 | NUR ---
NURSE NOTES: Patient awake and alert and oriented.patient sitting up in bed and eating breakfast Kerlix dressing on the right leg clean and intact Bed alarm on,call light within reach.
[2020-03-06 08:00] VITALS: BP 108/65
--- NOTE | 2020-03-06 10:38 | NUR ---
DISCHARGE PLANNING FOLLOW UP CALL MADE TO [facility] IN RE TO REFERRAL FOR PLACEMENT. CLINICAL PROJECT COORDINATOR WILDER NOT AVAILABLE. MESSAGE LEFT REQUESTING CALL BACK. WILL F/U. Addendum: 03/06/20 at 1155 by JACKIE HERNANDEZ LVN LVN Max HDZ AT [facility]. PATIENT ACCEPTED WITH BED ASSIGNMENT OF 39-A SKILLED DC TITLE COORDINATOR WILL COORDINATE TRANSPORTATION
[2020-03-06] MEDS ORDERED: LIDODERM700 M1 TDERMAL (11:35)
[2020-03-06] MEDS ORDERED: PERCOCET1 TAB ORAL (11:35)
[2020-03-06] MEDS ORDERED: LEVOFLOXACIN500 MG ORAL (11:35)
[2020-03-06] MEDS ORDERED: LOVENOX10 M4 SUBQ (11:35)
--- NOTE | 2020-03-06 11:41 | Discharge Summary ---
Discharge Summary Hospital Course Date of Admission Mar 02, 2020 at 17:10 Date of Discharge 03/06/2020 Admitting Diagnosis cellulitis HPI Robbin Cosby is a 74 year old male who was admitted on Mar 02, 2020 at 17:10 for Cellulitis Consultations general surgery Procedures bedside left lower extremity wound debridment Hospital Course 74 y/o M admitted due to lower extremity cellulitis with open non healing wound. He was started on IV Vancomycin and Zosyn for cellulitis, wound culture grew Staph Aureus and Pseudomona which both are sensitive to Levofloxacin. Antibiotic change was made to Levofloxacin and surgical consultation with bed side debridement completed. US study and doppler was positive for PAD and vascular surgery consultation as outpatient will be requested. The patient needs daily wound care and placement at SNF is coordinated and approved for today. STUDIES FINDINGS: Right common femoral artery: No acute findings. No occlusion or significant stenosis on color flow and spectral Doppler imaging. Normal waveform. Right superficial femoral artery: No acute findings. No occlusion or significant stenosis on color flow and spectral Doppler imaging. Normal waveform. Right popliteal artery: No acute findings. No occlusion or significant stenosis on color flow and spectral Doppler imaging. Normal waveform. Right calf/foot arteries: No flow in the right peroneal artery. Monophasic waveform of the right distal posterior tibialis artery and anterior tibialis artery. Indicate proximal stenosis. Left common femoral artery: No acute findings. No occlusion or significant stenosis on color flow and spectral Doppler imaging. Normal waveform. Left superficial femoral artery: No acute findings. No occlusion or significant stenosis on color flow and spectral Doppler imaging. Normal waveform. Left popliteal artery: No acute findings. No occlusion or significant stenosis on color flow and spectral Doppler imaging. Normal waveform. Left calf/foot arteries: Monophasic waveform of the left posterior tibialis artery, peroneal artery, dorsalis pedis artery, and anterior tibial arteries. Indicate proximal stenosis. Soft tissues: Unremarkable. IMPRESSION: 1. No flow in the right peroneal artery. 2. Monophasic waveform of the right distal posterior tibialis artery and anterior tibialis artery. Indicate proximal stenosis. 3. Monophasic waveform of the left posterior tibialis artery, peroneal artery, dorsalis pedis artery, and anterior tibial arteries. Indicate proximal stenosis. Discharge Medications New Medications: Levofloxacin (Levofloxacin*) 500 Mg Tablet 500 MG ORAL DAILY for 14 Days, #14 TAB 0 Refills Enoxaparin* (Lovenox*) 40 Mg/0.4 Ml Inj 40 MG SUBQ Q24H for 30 Days, #30 APPLIC Lidocaine Patch* (Lidoderm Patch*) 1 Each Adh..patch 1 PATCH TDERMAL DAILY for 30 Days, #30 PATCH 3 Refills Oxycodone/Acetaminophen (Oxycodone-Acetaminophen 5-325) 1 Each Tablet 1 TAB ORAL Q4H PRN for 30 Days, #90 TAB Discharge Condition Upon Discharge: stable Discharge Vital Signs Last Vital Signs Date Time Temp Pulse Resp B/P (MAP) Pulse Ox O2 Delivery O2 Flow Rate FiO2 03/06/20 09:44 Room Air 03/06/20 08:00 98.0 69 20 108/65 (79) 97 03/02/20 20:10 98 Discharge Disposition Patient was discharged to [facility] Discharge Diagnoses: (1) Cellulitis of left leg (2) Leg ulcer, left (3) Infected alexander (4) Back pain (5) PVD (peripheral vascular disease) (6) Hypokalemia Milton Hernandez MD Mar 06, 2020 11:41
[2020-03-06 12:00] VITALS: BP 107/61
--- NOTE | 2020-03-06 12:03 | NUR ---
DISCHARGE PLANNING PATIENT WILL DC TO [facility] P: [phone] F: [phone] BED [facility] TRANSPORTATION SCHEDULED WITH [facility] EXT 8832 WITH ETA @ 1330 PER KIM
--- NOTE | 2020-03-06 14:49 | NUR ---
NURSE NOTES: Report given to Dara MCKEON at [facility].
--- NOTE | 2020-03-06 15:13 | NUR ---
NURSE NOTES: [facility] personnel here to transport patient to [facility],IV removed and ID hospital band removed,patient has his personal belongings and wheel chair. Patient was given percocet at 1432,patient state he is starting to feel some relief.Dara MCKEON at [facility] aware that patient received Percocet at 1432.Pictures taken of wounds.
--- NOTE | 2020-03-06 23:10 | Surgery Progress Note ---
Surgery Progress Note Subjective Additional Comments late entry cellulitis improved tolerating diet wound clean with 100% viable tissue non viable gone now with local care okay to d/c outpatient follow up Objective Last 24 Hour Vital Signs Date Time Temp Pulse Resp B/P (MAP) Pulse Ox O2 Delivery O2 Flow Rate FiO2 03/06/20 12:00 98.7 61 21 107/61 (76) 97 03/06/20 09:44 Room Air 03/06/20 08:00 98.0 69 20 108/65 (79) 97 03/06/20 04:00 97.7 63 17 116/70 (85) 97 03/06/20 00:00 98.1 64 17 134/65 (88) 97 I&O Intake and Output 03/05/20 03/06/20 19:00 07:00 Intake Total 240 ml 300 ml Output Total 850 ml 1500 ml Balance -610 ml -1200 ml Intake Oral 240 ml 300 ml Output Urine Total 850 ml 1500 ml Dressing: saturated Wound: clean Cardiovascular: RSR Respiratory: clear Abdomen: soft, flat, present bowel sounds Extremities: edema, no tenderness, no cyanosis Laboratory Tests Test 03/06/20 05:30 White Blood Count 9.6 K/UL (4.8-10.8) Red Blood Count 4.05 M/UL (4.70-6.10) L Hemoglobin 11.1 G/DL (14.2-18.0) L Hematocrit 33.4 % (42.0-52.0) L Mean Corpuscular Volume 82 FL (80-99) Mean Corpuscular Hemoglobin 27.4 PG (27.0-31.0) Mean Corpuscular Hemoglobin Concent 33.2 G/DL (32.0-36.0) Red Cell Distribution Width 15.0 % (11.6-14.8) H Platelet Count 112 K/UL (150-450) L Mean Platelet Volume 9.1 FL (6.5-10.1) Neutrophils (%) (Auto) 58.7 % (45.0-75.0) Lymphocytes (%) (Auto) 28.6 % (20.0-45.0) Monocytes (%) (Auto) 9.7 % (1.0-10.0) Eosinophils (%) (Auto) 1.3 % (0.0-3.0) Basophils (%) (Auto) 1.7 % (0.0-2.0) Sodium Level 139 MMOL/L (136-145) Potassium Level 3.9 MMOL/L (3.5-5.1) Chloride Level 105 MMOL/L (98-107) Carbon Dioxide Level 27 MMOL/L (21-32) Anion Gap 7 mmol/L (5-15) Blood Urea Nitrogen 3 mg/dL (7-18) L Creatinine 0.9 MG/DL (0.55-1.30) Estimat Glomerular Filtration Rate > 60 mL/min (>60) Glucose Level 92 MG/DL (74-106) Calcium Level 8.4 MG/DL (8.5-10.1) L Plan Problems: (1) COVID-19 ruled out by laboratory testing (2) Hypokalemia (3) Cellulitis of left leg Assessment & Plan: 74M with cellulitis and open ulcer on left lateral distal leg seemingly venous stasis ulcer with acute infection. necrotic eschar falling off wound and underlying soft tissue exposed. no granulation tissue. unsure of prior care plan and patient unable to provide history. no abscess noted. -IV Abx -okay for diet -nutritional optimization -patient not able to tolerate local care given dry wound. therahoney applied and dressings to moisten eschar with plans for debridement once possible -discussed with patient and pcp -keep leg elevated while in bed will follow with recs and plan thank you bedside debridement of non viable tissue done. wound 100% viable tissue now. needs granulation tissue then graft in a few weeks needs vascular eval outpatient (4) Leg ulcer, left Assessment & Plan: US ordered venous FINDINGS: Right common femoral artery: No acute findings. No occlusion or significant stenosis on color flow and spectral Doppler imaging. Normal waveform. Right superficial femoral artery: No acute findings. No occlusion or significant stenosis on color flow and spectral Doppler imaging. Normal waveform. Right popliteal artery: No acute findings. No occlusion or significant stenosis on color flow and spectral Doppler imaging. Normal waveform. Right calf/foot arteries: No flow in the right peroneal artery. Monophasic waveform of the right distal posterior tibialis artery and anterior tibialis artery. Indicate proximal stenosis. Left common femoral artery: No acute findings. No occlusion or significant stenosis on color flow and spectral Doppler imaging. Normal waveform. Left superficial femoral artery: No acute findings. No occlusion or significant stenosis on color flow and spectral Doppler imaging. Normal waveform. Left popliteal artery: No acute findings. No occlusion or significant stenosis on color flow and spectral Doppler imaging. Normal waveform. Left calf/foot arteries: Monophasic waveform of the left posterior tibialis artery, peroneal artery, dorsalis pedis artery, and anterior tibial arteries. Indicate proximal stenosis. Soft tissues: Unremarkable. IMPRESSION: 1. No flow in the right peroneal artery. 2. Monophasic waveform of the right distal posterior tibialis artery and anterior tibialis artery. Indicate proximal stenosis. 3. Monophasic waveform of the left posterior tibialis artery, peroneal artery, dorsalis pedis artery, and anterior tibial arteries. Indicate proximal stenosis. (5) Onychomycosis (6) Acute alcoholic intoxication (7) Infected alexander (8) Nail avulsion, toe (9) Multiple falls (10) Infected nail bed of toe Bryan Gonsales Mar 06, 2020 23:10
== END 2020-03-06 15:23 | DRG 580 ==
LOC: EMR 16:05 → 4E 17:10 → EDBEDREQ 18:59
PROC: 0JDP0ZZ Extraction of Left Lower Leg Subcutaneous Tissue and Fascia, Open Approach (ICD-10-PCS; principal; 2020-03-05)
DX: L03.116 Cellulitis of left lower limb (principal); L97.829 Non-pressure chronic ulcer of other part of left lower leg with unspecified severity; L97.922 Non-pressure chronic ulcer of unspecified part of left lower leg with fat layer exposed; D69.6 Thrombocytopenia, unspecified; E87.6 Hypokalemia; F10.129 Alcohol abuse with intoxication, unspecified; G89.29 Other chronic pain; M54.9 Dorsalgia, unspecified; I73.9 Peripheral vascular disease, unspecified; R29.6 Repeated falls; Z20.828 Contact with and (suspected) exposure to other viral communicable diseases; B35.1 Tinea unguium; B96.5 Pseudomonas (aeruginosa) (mallei) (pseudomallei) as the cause of diseases classified elsewhere; B95.61 Methicillin susceptible Staphylococcus aureus infection as the cause of diseases classified elsewhere; I77.1 Stricture of artery; I87.8 Other specified disorders of veins
CPT/HCPCS: 36415; 71045; 72020; 80048; 80053; 80202; 81003; 82150; 82248; 82550; 83036; 83605; 83690; 83735; 83880; 84100; 84484; 85007; 85025; 85610; 85651; 85730; 86140; 87040; 87070; 87086; 87181; 87205; 90471; 90715; 93005; 93925; 93970; 96361; 96365; 96367; 99285; J7030; J8499; U0002